=== PATIENT | female | born 1975 | race Caucasian/White ===

== ENCOUNTER → 2019-04-25 10:25 | Outpatient (CLI) | payer OTHER, SELFPAY ==
--- NOTE | 2019-04-25 | DI.RAD.S_ITS ---
PROCEDURE: XR ABDOMEN 1V INDICATIONS: calculus of kidney TECHNIQUE: One view of the abdomen acquired. COMPARISON: [facility], CR, XR ABDOMEN 1 VIEW, 04/13/2019, 6:46. FINDINGS: Surgical changes and devices: Status post placement of right ureteral stent. Bowel: Bowel gas pattern is normal. Soft tissues: Multiple right nephrolithiasis measuring up to 4 mm. Bones: No suspicious bony lesions. IMPRESSION: Status post placement of right ureteral stent Right nephrolithiasis measuring up to 4 mm, this appears decreased since the prior study dated 04/13/19. Dictated by: Osman Claros M.D. on 04/25/2019 at 13:29 Approved by: Osman Claros M.D. on 04/25/2019 at 13:31
== END ==
PROVIDERS: Visit Provider Urology
DX: N20.0 Calculus of kidney (principal); Z96.0 Presence of urogenital implants
CPT/HCPCS: 74018

== ENCOUNTER → 2020-08-23 07:30 | Outpatient (CLI) | payer OTHER, SELFPAY ==
--- NOTE | 2020-08-23 07:32 | DI.US.S_ITS ---
PROCEDURE: US PELVIC COMPLETE INDICATIONS: WORSENING MENORRHAGIA AND LEFT LOWER QUADRANT MASS TECHNIQUE: Real-time scanning was performed of the pelvic organs, with image documentation. Additional endovaginal scanning was necessary due to incomplete visualization of the adnexal and endometrial structures by transabdominal scanning. COMPARISON: Outside Film, CT, CT ABDOMEN PELVIS WITH CONTRAST, 11/08/2018, 9:38. [facility], CT, CT ABDOMEN PELVIS W CON, 08/23/2020, 7:41. FINDINGS: Uterus: Uterus is anteverted and normal in size at 9.9 x 6.6 x 5.2 cm. The endometrium measures five mm in combined thickness. The myometrium is mildly heterogeneous without discrete mass. There are several simple nabothian cysts in the cervix. Ovaries: The right ovary measures 4.7 x 2.8 x 2.9 cm for a volume of 19.8 cc. The left ovary measures 3.0 x 2.7 x 2.4 cm for a volume of 10.1 cc.. Both ovaries demonstrate a normal echotexture. Other: There is a subcutaneous cyst with a few thick septations in the left lower quadrant corresponding to the area of concern measuring 5.8 x 7.1 x 6.2 cm. There is trace vascularity along the periphery and within one of the septations. No pathologic free abdominal or pelvic fluid. IMPRESSION: 1. Slightly heterogeneous myometrial echotexture raising the possibility of adenomyosis. No focal mass or fibroid. 2. Subcutaneous left lower quadrant mildly complex cystic mass has increased size compared to the CT scan from 04/01/19. Consider MRI and/or tissue biopsy if not previously performed. Dictated by: Tiffanie Pitt M.D. on 08/23/2020 at 10:46 Approved by: Tiffanie Pitt M.D. on 08/23/2020 at 10:54
--- NOTE | 2020-08-23 07:32 | DI.MG.S_ITS ---
BILATERAL DIGITAL SCREENING MAMMOGRAM 3D/2D WITH CAD: 08/23/2020 CLINICAL: Routine Screening. Comparison is made to exam dated: 05/04/2017 mammogram and ultrasound - [facility]. There are scattered fibroglandular elements in both breasts. Current study was also evaluated with a Computer Aided Detection (CAD) system. There are post-traumatic changes with associated rim calcifications in the right breast 12:00 position posterior depth corresponding to large hematoma seen on 2017 mammogram and ultrasound. No significant masses, calcifications, or other findings are seen in either breast. IMPRESSION: BENIGN There is no mammographic evidence of malignancy. A 1 year screening mammogram is recommended. This exam was interpreted at Station ID: [id number]. NOTE: For mammograms, a report in lay terms will be sent to the patient. Approximately 15% of breast malignancies will not be visualized mammographically. In the management of a palpable breast mass, a negative mammogram must not discourage biopsy of a clinically suspicious lesion. Electronically Signed By: Hugo Moncada M.D. aty/:08/23/2020 08:53:25 letter sent: Normal Exam ACR BI-RADS Category 2: Benign Finding(s) 3342F
--- NOTE | 2020-08-23 07:57 | DI.CT.S_ITS ---
PROCEDURE: CT ABDOMEN PELVIS W CON INDICATIONS: Reeval LLQ mass, clinically enlarging with increased pain TECHNIQUE: After the administration of intravenous contrast, 5 mm thick sections acquired from the diaphragm to the symphysis. 5 mm coronal and sagittal reformats were acquired. For radiation dose reduction, the following was used: automated exposure control, adjustment of mA and/or kV according to patient size. COMPARISON: Outside Film, US, US ABDOMEN LIMITED, 11/01/2018, 9:28. [facility], , CT ABDOMEN/PELVIS WITH CONTRAST, 11/08/2018, 9:38. [facility], , CT ABDOMEN/PELVIS WITH CONTRAST, 04/01/2019, 11:05. FINDINGS: Image quality: Excellent. ABDOMEN: Lung bases: Lung bases are clear. Heart size is normal. Solid organs: Liver is normal in size and enhancement. Gallbladder is decompressed. Biliary system is non dilated. Pancreas enhances normally. Spleen is normal in size and enhancement. No adrenal nodules. Kidneys demonstrate normal size and enhancement, without hydronephrosis. Right kidney stones nonobstructing x2 measuring at 6 mm and 3 mm. Peritoneum and bowel: Stomach is decompressed limiting evaluation. Bowel loops demonstrate normal wall thickness and caliber. The appendix is not seen. No free fluid or air. Nodes and vessels: No retroperitoneal or mesenteric adenopathy by size criteria. Aorta and inferior vena cava are normal in size. Miscellaneous: No significant ventral hernias. Left lower quadrant abdominal wall soft tissue mass measures 6.3 x 5.9 x 5.5 cm, ( and 09/28), previously 4.2 x 3.9 x 3 cm on 04/01/2019. No internal calcifications. This appears bilobed with portion below the abdominal wall fascia. No surrounding fluid collection. PELVIS: Genitourinary: Bladder is unremarkable. Anteverted uterus. Miscellaneous: No inguinal hernias or adenopathy. Bones: No suspicious bony lesions. No vertebral body compression fractures. IMPRESSION: 1. Left lower quadrant abdominal wall mass measuring 6.3 cm is increased in size compared to March 2019 where it measured 4.2 cm. This could represent a desmoid tumor. Malignant etiology cannot be excluded. -Consider further evaluation with MRI with IV contrast. 2. No enlarged adenopathy. 3. Small nonobstructing right kidney stones. Dictated by: Allen Gamez M.D. on 08/23/2020 at 9:45 Approved by: Allen Gamez M.D. on 08/23/2020 at 10:05
[2020-08-23 08:13] LABS: Hematocrit 42.4 % (36-46); Hemoglobin 13.9 g/dL (12.0-16.0); Mean Corpuscular HGB Conc 32.8 % (30-36); Mean Corpuscular Hemoglobin 27.4 PG (26-34); Mean Corpuscular Volume 83.5 fL (80-100); Platelet Count 282 X10^3/uL (150-400); Red Blood Cell Count 5.08 X10^6/uL (4.0-5.2); Red Cell Distribution Width 13.6 % (11.6-14.8); White Blood Cell Count 7.1 X10^3/uL (4.5-11.0)
[2020-08-23 08:42] LABS: Alanine Aminotransferase 12 IU/L (<35); Albumin 3.8 g/dL (3.5-5.0); Albumin Globulin Ratio 1.3 (1.0-2.8); Alkaline Phosphatase 56 U/L (38-126); Aspartate Aminotransferase 17 IU/L (14-36); BUN Creatinine Ratio 32.3 (6-22); Bilirubin Total 0.3 mg/dL (0.2-1.3); Blood Urea Nitrogen 21 mg/dL (7-17); Calcium 8.9 mg/dL (8.4-10.2); Carbon Dioxide 29 mmol/L (22-32); Chloride 106 mmol/L (98-107); Cholesterol 186 mg/dL (140-199); Estimated Glomerular Filt Rate > 60.0 mL/min (>60); Globulin 2.9 g/dL (1.7-4.1); Glucose 100 mg/dL (70-100); HDL Cholesterol 66 mg/dL (40-60); HEMOLYSIS < 15 (0-50); LDL Cholesterol Calculated 112 mg/dL (<100); Potassium 4.3 mmol/L (3.4-5.1); Sodium 137 mmol/L (137-145); Total Protein 6.7 g/dL (6.3-8.2); Triglycerides 42 mg/dL (35-150)
[2020-08-23 09:16] LABS: TSH w/ Reflex to FT4 1.18 uIU/mL (0.47-4.68)
== END ==
PROVIDERS: PCP Registered Nurse Diabetes Educator; Referring Provider Registered Nurse Diabetes Educator; Visit Provider Registered Nurse Diabetes Educator
DX: R19.04 Left lower quadrant abdominal swelling, mass and lump (principal); R10.32 Left lower quadrant pain; N20.0 Calculus of kidney; Z12.31 Encounter for screening mammogram for malignant neoplasm of breast; N92.0 Excessive and frequent menstruation with regular cycle
CPT/HCPCS: 36415; 74177; 76830; 76856; 77063; 77067; 80053; 80061; 84443; 85027; Q9967

== ENCOUNTER → 2020-09-09 10:08 | Outpatient (CLI) | payer OTHER, SELFPAY ==
[2020-09-09 11:49] LABS: COVID19 -Nasal RAPID Negative (Negative)
== END ==
PROVIDERS: PCP Registered Nurse Diabetes Educator; Visit Provider Surgery
DX: Z20.822 Contact with and (suspected) exposure to COVID-19 (principal)
CPT/HCPCS: 87635; C9803

== ENCOUNTER 2020-09-10 09:37 | Day surgery (SDC) | payer OTHER, SELFPAY ==
[2020-09-10] VITALS (9 sets, daily range): BP systolic 96–124; BP diastolic 47–70; PULSE 67–81; RESP 8–20; TEMP 36.7–37; O2SAT 96–100; BMI 31.1
--- NOTE | 2020-09-10 | PATH_ITS ---
[facility] Accession Number: [id number] . 01 Material submitted: . abdomen - DESMOID TUMOR ABDOMINAL WALL . 01 Clinical history: . EXCISION OF DESMOID TUMOR . 02 Diagnosis: Abdominal Wall Lesion, Excision: Endometriotic cyst. No evidence of malignancy. MRV 09/16/2020 1307 Local . 02 Comment: As part of routine senior quality technician, Dr. Clements has reviewed the H/E slides from this case and agrees with the diagnosis of an endometriotic cyst, without evidence of malignancy. . 02 Electronically signed: . Cj Colon MD, PhD, Pathologist NPI- [id number] . 01 Gross description: . The specimen is received in formalin, labeled desmoid tumor abdominal wall and consists of two roberts-yellow fragments of adipose tissue and skeletal muscle measuring 11.0 x 10.0 x 7.0 cm in aggregate. The specimen is inked blue and sectioned to reveal a 4.0 x 4.0 x 4.0 cm cavity with a roberts-pink granular hemorrhagic inner lining abutting the blue ink. The surrounding tissue is roberts-white and fibrotic. Dietary Aide Teacher sections are submitted in cassettes A1-A6. ([id number]) /MRV 09/12/2020 1214 Local . 02 Microscopic: . Sections are of fibroadipose tissue and skeletal muscle. Within the center of the specimen, there is a hemorrhagic cystic structure with a predominantly denuded lining. In some areas, a simple columnar epithelium and focal cellular stroma are identified. The epithelial component is strongly and diffusely positive for PAX-8 immunoreactivity, and the stromal component is strongly and diffusely positive for CD10 immunoreactivity. Control stains show appropriate reactivity. The overall morphology and immunoprofile are consistent with an endometriotic cyst. There is no evidence of neoplasm. . * This test was developed and its performance characteristics determined by [facility]. It has not been cleared or approved by the U.S. Food and Drug Administration. The FDA has determined that such clearance or approval is not necessary. This test is used for clinical purposes. It should not be regarded as investigational or for research. . 02 Pathologist provided ICD-10: N80.6, N80.9 . 02 CPT . 806620, G99855, X37024 Performed at: 01 [facility] [address] [address], [place], [place] [id number] MD Moshe Cloud MD Phone: [phone] Performed at: 02 [facility] [address] [place] [id number] MD Yue Prabhakar MD Phone: [phone]
[2020-09-10] MEDS: ACETAMINOPHEN 325 MG TABLET 975 MG PO (10:01)
[2020-09-10] MEDS: SCOPOLAMINE 1 PATCH TOP (10:04)
[2020-09-10] MEDS: LACTATED RINGERS 1,000 ML 100 ML IV ×2 (10:16→12:34)
--- NOTE | 2020-09-10 10:49 | PM.PREOP ---
Pre-operative Note Interval Note History & Physical reviewed/Exam performed by Physician: Yes Changes to H&P: No
[2020-09-10] MEDS: CEFAZOLIN 2 GM/100 ML FROZ.PIGGY IV (11:17)
--- NOTE | 2020-09-10 11:30 | SUR.OPER ---
Supine on padded OR bed, head on pillow, arms secured on padded arm boards at <90 degrees abduction, legs uncrossed, safety belt at thigh, tape over blanket over lower legs.
[2020-09-10] MEDS: BUPIVACAINE 0.25% (PF) VIAL 30 ML INJ (11:38)
[2020-09-10] MEDS: MEPERIDINE 50 MG/ML INJ 12.5 MG IV (13:03)
[2020-09-10] MEDS: ONDANSETRON 4 MG/2 ML INJ IV (13:05)
--- NOTE | 2020-09-10 13:16 | P.OP_ITS ---
Operative Date/Time/Diagnoses Date of procedure: 09/10/20 Time of procedure: 13:16 Pre-op diagnosis: abdominal wall desmoid tumor Post-op diagnosis: same Procedure & Clinicians Procedure: exicision of desmoid tumor 8 cm Same procedure as scheduled: Yes Indications: 44 female history of a complicated cesarian section with multiple returns to the OR for control of abdominal wall bleeding who developed a mass of the abdominal wall imaging is consistent with a desmoid tumor. Surgeon: Noel Stevenson Anesthesia Type: General Operative Notes Findings: well vascularized 8 cm mass of the abdominal wall superficial to the left rectus. Fluid spontaneously drained from the mass cultures were taken. Specimen(s): other (desmoid tumor) Estimated Blood Loss (mL): 30 Procedure in detail: Patient is doing the operating room placed supine on table. Bilateral lower extremity compression devices were applied. She received 2 g of Ancef prior to skin incision. General anesthesia was induced and she was intubated with an LMA. She was prepped and draped in sterile fashion. The mass within the abdominal wall was palpable left lower quadrant. 0.25% bupivacaine was infiltrated into the skin. A incision was made over the area of concern the subcutaneous tissues were divided. The mass was encountered it was approximately 8 cm in maximal diameter. It was well vascularized and lay over the anterior sheath of the left rectus muscle. The mass was manipulated and was dissected off of the rectus muscle. The mass was very well vascularized. In manipulating in the mass there was a spontaneous drainage of some dark viscus fluid approximately 50 mL cultures were taken. The mass was then entirely dissected off of the left rectus muscle no residual remained and passed off the field as specimen labeled desmoid tumor. Wound was copiously irrigated hemostasis was achieved. A 19 [place] Aidan drain was then placed into the wound overlying the left rectus. Wound was then closed in layers using Vicryl suture the skin closed with interrupted nylon suture. A total of 30 mL of 0.25% bupivacaine was used for local anesthetic. Patient tolerated the procedure well she was extubated and transferred to the recovery room in stable condition. Complications: none Post-operative Condition: stable Disposition: same day surgery
--- NOTE | 2020-09-10 13:19 | SUR.PHASEI ---
Pt from OR with RN/anesth. ALert, able to turn self on right side. Small amt of shakes, bear hugger placed and demerol IV given. Shakes resolved. Zofran for nausea. Pt taking ice chips and juice.
[2020-09-10] MEDS: OXYCODONE IR 5 MG TABLET PO (13:26)
--- NOTE | 2020-09-10 14:03 | SUR.PHASEII ---
Discharge teaching done with patient. NICOLE emptying demonstrated. Pt verbalized understanding. Pt transfer to OPD
== END 2020-09-10 14:19 | disposition home or self-care (01) ==
PROVIDERS: PCP Registered Nurse Diabetes Educator; Referring Provider Surgery; Visit Provider Surgery
PROC: (CPT 22903; principal; 2020-09-10 10:45)
DX: N80.6 Endometriosis in cutaneous scar (principal); E66.9 Obesity, unspecified; Z68.32 Body mass index [BMI] 32.0-32.9, adult
CPT/HCPCS: 22903; 87070; 87075; 87205; J0690; J1100; J1885; J2175; J2250; J2405; J2704; J3010

== ENCOUNTER → 2022-05-01 09:20 | Outpatient (CLI) | payer OTHER, SELFPAY ==
[2022-05-01 10:48] LABS: Hematocrit 41.8 % (36-46); Hemoglobin 13.6 g/dL (12.0-16.0); Mean Corpuscular HGB Conc 32.5 % (30-36); Mean Corpuscular Hemoglobin 26.4 PG (26-34); Mean Corpuscular Volume 81.3 fL (80-100); Platelet Count 297 X10^3/uL (150-400); Red Blood Cell Count 5.14 X10^6/uL (4.0-5.2); Red Cell Distribution Width 13.6 % (11.6-14.8); White Blood Cell Count 7.1 X10^3/uL (4.5-11.0)
[2022-05-01 11:16] LABS: Alanine Aminotransferase 19 IU/L (<35); Albumin Globulin Ratio 1.1 (1.0-2.8); Alkaline Phosphatase 68 U/L (38-126); Aspartate Aminotransferase 20 IU/L (14-36); BUN Creatinine Ratio 28.8 (6-22); Bilirubin Total 0.5 mg/dL (0.2-1.3); Blood Urea Nitrogen 17 mg/dL (7-17); Calcium 8.7 mg/dL (8.4-10.2); Carbon Dioxide 26 mmol/L (22-32); Chloride 105 mmol/L (98-107); Cholesterol 188 mg/dL (140-199); Estimated Glomerular Filt Rate > 60 mL/min (>60); Globulin 3.6 g/dL (1.7-4.1); Glucose 92 mg/dL (70-100); HDL Cholesterol 56 mg/dL (40-60); HEMOLYSIS < 15 (0-50); LDL Cholesterol Calculated 125 mg/dL (<100); Potassium 4.4 mmol/L (3.4-5.1); Sodium 139 mmol/L (137-145); Total Protein 7.6 g/dL (6.3-8.2); Triglycerides 37 mg/dL (35-150)
[2022-05-01 11:48] LABS: TSH w/ Reflex to FT4 1.01 uIU/mL (0.47-4.68)
== END ==
PROVIDERS: PCP Registered Nurse Diabetes Educator; Referring Provider Registered Nurse Diabetes Educator; Visit Provider Registered Nurse Diabetes Educator
DX: D48.1 Neoplasm of uncertain behavior of connective and other soft tissue (principal); E66.9 Obesity, unspecified; N20.0 Calculus of kidney; N80.9 Endometriosis, unspecified; Z13.9 Encounter for screening, unspecified
CPT/HCPCS: 36415; 80053; 80061; 84443; 85027

== ENCOUNTER → 2022-05-27 16:21 | Outpatient (CLI) | payer OTHER, SELFPAY ==
--- NOTE | 2022-05-27 16:22 | DI.MRI.S_ITS ---
PROCEDURE: MR HEAD/BRAIN WO CON INDICATIONS: eval increasing frequency and severity headaches TECHNIQUE: Noncontrast axial T1 spin echo, axial T2 fast spin echo, sagittal and axial FLAIR, coronal T2 fast spin echo, axial gradient echo, axial diffusion and ADC through the brain. COMPARISON: None. FINDINGS: Image quality: Excellent. CSF Spaces: Basal cisterns are patent. No extra-axial fluid collections. Ventricles are normal in size and shape. Brain: No intracranial masses or hemorrhage. Cantu/white matter interface is normal. Brainstem appears normal. Diffusion-weighted images demonstrate no acute ischemic insult. No chronic ischemic insults. Normal intravascular flow voids are present. Skull and face: Calvarium has normal marrow signal. Orbits appear normal. Sinuses: Sinuses and mastoids are clear. IMPRESSION: 1. No acute intracranial abnormality. No explanation for headache. 2. No recent infarct. Dictated by: Nomi Sr M.D. on 05/27/2022 at 16:26 Approved by: Nomi Sr M.D. on 05/27/2022 at 16:26
== END ==
PROVIDERS: PCP Registered Nurse Diabetes Educator; Referring Provider Registered Nurse Diabetes Educator; Visit Provider Registered Nurse Diabetes Educator
DX: R51.9 Headache, unspecified (principal)
CPT/HCPCS: 70551

== ENCOUNTER 2022-12-17 12:35 | Day surgery (SDC) | payer OTHER, SELFPAY ==
[2022-12-03 12:24] VITALS: BMI 40.3
[2022-12-17] VITALS (9 sets, daily range): BP systolic 112–126; BP diastolic 56–87; PULSE 77–92; RESP 12–18; TEMP 35.9–36.7; O2SAT 93–98; BMI 38.0
--- NOTE | 2022-12-17 | PATH_ITS ---
[facility] Accession Number: [id number] No. of containers..01 Tissue . 01 Material submitted: . uterus - UTERUS AND TUBES, BILATERAL . 01 Diagnosis: Uterus and Tubes, Bilateral (Weight 195 grams): Disordered proliferative endometrium; negative for significant atypia. Myometrium with involvement by adenomyosis. Uterine serosa with no significant histomorphologic abnormality. Intact fallopian tube with no significant histomorphologic abnormality. Fragmented fallopian tube with no significant histomorphologic abnormality. [facility] 12/23/2022 1547 Local . 01 Electronically signed: . Grace Hough MD, Pathologist NPI- [id number] . 01 Gross description: . The specimen is received in formalin labeled with the patient's name, , and uterus and tubes consists of a fragmented uterus (195 grams, and aggregating to 14.4 x 12.2 x 5.3 cm) and two fimbriated fallopian tubes (intact, measures 3.3 x 0.6 cm and the fragmented tube measures 5.2 x 0.7 cm) with no cervix or additional adnexa. The serosa is roberts and wrinkled with no evidence of adhesion or hemorrhage identified. The endometrium is roberts to brown and lush, averaging 0.1 cm thick. The myometrium is roberts and trabecular with no well-circumscribed nodules grossly identified, and several small cystic areas measuring up to 0.3 cm in greatest dimension. . The intact fallopian tube has roberts smooth serosa with no cystic structures identified, and sectioning reveals an unremarkable stellate lumen. The fragmented fallopian tube has roberts smooth serosa with no cystic structures identified, and sectioning reveals an unremarkable stellate lumen. . Pit Furnace Operator sections are submitted as follows: A1: Endometrium. A2: Endometrium and cystic area. A3: Serosa. A4: Intact fallopian tube to include one-half of bisected fimbriae and cross sections. A5: Fragmented fallopian tube to include one-half of the bisected fimbriae and cross sections. ([id number]) /MRV 12/18/2022 1443 Local . 01 Pathologist provided ICD-10: N80.03, N92.0 . 01 CPT . 104207 Specimen Comment: A courtesy copy of this report has been sent to [phone] Performed at: 01 [facility] [address] [place] [address], [place], [place] [id number] MD Moshe Cloud MD Phone: [phone]
[2022-12-17] MEDS: SCOPOLAMINE 1 PATCH TOP (13:05)
[2022-12-17] MEDS: LACTATED RINGERS 1,000 ML 42 ML IV ×2 (13:09→14:35)
--- NOTE | 2022-12-17 13:22 | PM.PREOP ---
Pre-operative Note COVID-19 COVID-19 status: Not tested Criteria for continued procedure: Non-surgical alternatives not available or appropriate per current SOC Interval Note History & Physical reviewed/Exam performed by Physician: Yes Changes to H&P: No
[2022-12-17] MEDS: CEFAZOLIN VIAL 3 GM in SODIUM CHLORIDE 0.9% 100 ML IV (13:45)
[2022-12-17] MEDS: ACETAMINOPHEN IV 1,000 MG/100 ML VIAL 400 MG IV (13:55)
--- NOTE | 2022-12-17 14:23 | SUR.OPER ---
Lithotomy on padded OR bed. Granite Quarry Pad Positioner under torso. Head on pillow, arms padded and tucked at sides. Legs secured in padded yellow fins stirrups. Bed extenders placed on both sides.
[2022-12-17] MEDS: BUPIVACAINE 0.5% (PF) 30 ML, EPINEPHrine 0.15 MG INJ (14:38)
[2022-12-17] MEDS: ROPIVACAINE 0.2% PF 2 MG/ML 20ML AMP 20 ML INJ (15:07)
--- NOTE | 2022-12-17 16:08 | P.OP_ITS ---
Operative Date/Time/Diagnoses Date of procedure: 12/17/22 Time of procedure: 14:00 Pre-op diagnosis: Menorrhagia Adenomyosis (Suspected diagnosis) Post-op diagnosis: same Procedure & Clinicians Procedure: Procedures Operation Date: 12/17/22 13:30 Actual Procedure Side Surgeon p Laparoscopic Supracervical Hysterectomy w/ bilateral salpingectomy Jared Cleveland MD Indications: Lidya is a 46-year-old , LMP due in about 3 or 4 days, who presents with progressively severe menorrhagia for the last 4 years.? Patient experienced menarche at age 15 her cycles have never been regular.? She was diagnosed with polycystic ovarian syndrome in her teens and initiated on oral contraceptives which did not necessarily improve her flow or regularity.? Use of oral contraceptives have also been complicated by her history of migraines with and without aura.? At the time of her 3rd delivery, her 1st by , in 2013 she underwent tubal ligation at the time of .? Since then her menses have been regular but her menstrual flow is steadily lengthened to the point now that it typically lasts between 1 in 2 weeks with the passage of large clots and severe cramping.? She denies intermenstrual bleeding or postcoital bleeding.? Her last Pap was about 2 months ago and was normal.? She is never had endometrial sampling.? Family history is notable for her father's sister and mother who have ovarian and/or breast cancer.? Most recent pelvic imaging was in August 2020 which showed: PROCEDURE:? US PELVIC COMPLETE ? INDICATIONS:? WORSENING MENORRHAGIA AND LEFT LOWER QUADRANT MASS ? TECHNIQUE:? Real-time scanning was performed of the pelvic organs, with image documentation.? Additional endovaginal scanning was necessary due to incomplete visualization of the adnexal and endometrial structures by transabdominal scanning.? ? COMPARISON:? Outside Film, CT, CT ABDOMEN PELVIS WITH CONTRAST, 11/08/2018, 9:38.? [facility], CT, CT ABDOMEN PELVIS W CON, 08/23/2020, 7:41. ? FINDINGS:? ?? Uterus:? Uterus is anteverted and normal in size at 9.9 x 6.6 x 5.2 cm.? The endometrium measures five mm in combined thickness.? The myometrium is mildly heterogeneous without discrete mass.? There are several simple nabothian cysts in the cervix. ? Ovaries:? The right ovary measures 4.7 x 2.8 x 2.9 cm for a volume of 19.8 cc.? The left ovary measures 3.0 x 2.7 x 2.4 cm for a volume of 10.1 cc..? Both ovaries demonstrate a normal echotexture.? ? Other: ? There is a subcutaneous cyst with a few thick septations in the left lower quadrant corresponding to the area of concern measuring 5.8 x 7.1 x 6.2 cm.? There is trace vascularity along the periphery and within one of the septations.? No pathologic free abdominal or pelvic fluid. ? IMPRESSION:? 1. Slightly heterogeneous myometrial echotexture raising the possibility of adenomyosis.? No focal mass or fibroid. 2. Subcutaneous left lower quadrant mildly complex cystic mass has increased size compared to the CT scan from 04/01/19.? Consider MRI and/or tissue biopsy if not previously performed. Endometrial biopsy performed previously and negative for hyperplasia, atypia, or neoplasia.? Based on the patient's symptoms and prior imaging from 2020, adenomyosis would seem to be the most likely culprit insofar as her worsening menorrhagia.? We discussed different options available for further evaluation/treatment of the menorrhagia and patient is adamant that she wishes to pursue definitive therapy form of hysterectomy.? Given her history of normal Paps throughout her reproductive life and a prior Pfannenstiel, supracervical hysterectomy with bilateral salpingectomy would be the optimal surgical approach in her instance.? She presents today for her scheduled procedure. Surgeon: Jared Cleveland Truck Loader: Jayleen Duque Anesthesia Type: General Operative Notes Findings: The uterus is diffusely enlarged to approximately 8 weeks in size. There were adhesions involving the anterior cul-de-sac from prior sections and involving the right round ligament. Fallopian tubes demonstrate change consistent with prior tubal ligation. Posterior cul-de-sac is without adhesions or evidence of endometriosis. Both ovaries appear to be normal. The remainder of the abdomen was normal to laparoscopic visualization. Closure Type: primary Specimen(s): left tube, right tube and uterus Applied: catheter Estimated blood loss (mL): 75 Blood products transfused: none Procedure in detail: With the patient under satisfactory general anesthesia in the modified dorsal lithotomy position, the vagina, perineum, and abdomen were prepped and draped in the usual manner for laparoscopic supracervical hysterectomy. A pre-surgical safety time-out was then taken in accordance with [facility] Main OR protocols. A bivalve speculum was inserted vagina, the cervix grasped with a single-tooth tenaculum and dilated with Hegar dilators so as to be able to place a Zumi manipulator within the endometrial cavity. The inferior aspect of the umbilicus was then infiltrated 0.5% Marcaine with epinephrine and a 1 cm transverse incision was made through which a Veress needle was used insufflate the abdominal cavity. Once insufflated a 5 mm trocar and sleeve were then placed through the incision and the presence of the sleeve in the abdomen was confirmed by laparoscopic inspection. Second and 3rd 5 mm ports were then placed in the left and right mid quadrants using a similar technique. Pelvis and abdomen were then inspected using a 3 puncture technique with the findings as noted above. The left fallopian tube was grasped at its distal most portion and infundibulopelvic ligament on the left was then and divided with the PowerSeal bipolar device. The dissection was then carried mesosalpinx to level of the cornua and then the round ligament on the left was coagulated and divided with the PowerSeal. The dissection was then taken down to the level of the endocervix where the ascending uterine vessels were coagulated and divided. Bladder flap was initiated from the left and dissection was carried across the midline to the right side. Attention was then turned to the right side where the distal right tube was grasped with a grasping forceps and the infundibulopelvic ligament on the right was coagulated and divided with the PowerSeal. The dissection was then carried across the mesosalpinx to the cornua, downward across the round ligament to the level of the endocervical canal where vessels were coagulated and divided and the bladder flap completed. Bladder was advanced, the Zumi manipulator removed, and a Eusebia loop was used to amputate the corpus. Following amputation there was no bleeding encountered. The cervical stump was then coagulated with monopolar current and the endocervical canal was coagulated in a similar manner. A 4 cm transverse suprapubic incision was then made through which a 12 mm trocar and sleeve was introduced into the abdominal cavity. An Endo-Catch was used to capture the uterine corpus and brought up to the suprapubic incision. S retractors were used to expose the fascia which was incised bilaterally so as to expand the fascial incision and once the incision had been expanded, an Real retractor was placed in the retrieval bag. Sharp morcellation of the uterine corpus was then carried out and the containment bag and submitted as an aggregate specimen. The Real retractor was then removed and closure of the fascial defect was accomplished with 0 Vicryl in a running stitch. The abdomen was then reinsufflated the pelvis thoroughly inspected. There was no points of bleeding identified and the ureters were seen to be peristalsing freely on both sides. 20 cc of ropivacaine was then placed in the pelvis and the pneumoperitoneum was vented. The laparoscopic sleeves were then removed after venting of the pneumoperitoneum and all skin incisions were closed with 4-0 Monocryl using inverted interrupted stitches. Skin glue was then applied followed by placement of appropriate dressings on all incisions. Patient was then awakened from anesthesia and transferred to the PACU for a period of observation and recovery after having tolerated the procedure well. Complications: none Post-operative Condition: stable Disposition: PACU Plan for aftercare: Routine postoperative care.
[2022-12-17] MEDS: LACTATED RINGERS 1,000 ML 100 ML IV (16:36)
[2022-12-17] MEDS: KETOROLAC 30 MG/ML VIAL IV ×2 (16:36→22:47)
--- NOTE | 2022-12-17 16:55 | PC.NURSE ---
Pt arrived on bed from PACU at 1630, A&Ox4, VSS on RA. c/o minor abdominal pain, worse with movement. 4 lap sites to abdomen, dressing c/d/i. CMS intact bilaterally throughout. Schaeffer in place, draining well - clear yellow urine. Pt oriented to room and call light. SCDs on, bed in low position, call light within reach.
[2022-12-17] MEDS: ACETAMINOPHEN 325 MG TABLET 650 MG PO ×2 (18:30→23:00)
[2022-12-17] MEDS: CALCIUM CARBONATE 500 MG TAB 1000 MG PO (21:02)
[2022-12-18 01:16] VITALS: BP 103/61; PULSE 80; RESP 17; TEMP 36.7; O2SAT 97
[2022-12-18 04:43] LABS: Add Manual Diff / Slide Review NO; Basophils Absolute Auto 0 /uL (0-100); Basophils Percent Auto 0.3 % (0-2); Eosinophils Absolute Auto 0 /uL (0-450); Hematocrit 36.6 % (36-46); Hemoglobin 11.9 g/dL (12.0-16.0); Lymphocytes Absolute Auto 1300 /uL (1100-4500); Lymphocytes Percent Auto 7.1 % (25-40); Mean Corpuscular HGB Conc 32.5 % (30-36); Mean Corpuscular Hemoglobin 25.4 PG (26-34); Monocytes Absolute Auto 700 /uL (0-900); Monocytes Percent Auto 4.1 % (3-14); Neutrophils Absolute Auto 15700 /uL (1500-7000); Neutrophils Percent Auto 88.5 % (50-75); Platelet Count 296 X10^3/uL (150-400); Red Cell Distribution Width 14.6 % (11.6-14.8); White Blood Cell Count 17.7 X10^3/uL (4.5-11.0)
--- NOTE | 2022-12-18 07:53 | PM.DS.1 ---
History of Present Illness History of Present Illness Date Patient Seen: 12/18/22 Time Patient Seen: 07:53 Chief complaint: [facility] w/leanna Salpingectomy *OPB* Narrative: Lidya is a 46-year-old , LMP due in about 3 or 4 days, who presents with progressively severe menorrhagia for the last 4 years.? Patient experienced menarche at age 15 her cycles have never been regular.? She was diagnosed with polycystic ovarian syndrome in her teens and initiated on oral contraceptives which did not necessarily improve her flow or regularity.? Use of oral contraceptives have also been complicated by her history of migraines with and without aura.? At the time of her 3rd delivery, her 1st by , in 2013 she underwent tubal ligation at the time of .? Since then her menses have been regular but her menstrual flow is steadily lengthened to the point now that it typically lasts between 1 in 2 weeks with the passage of large clots and severe cramping.? She denies intermenstrual bleeding or postcoital bleeding.? Her last Pap was about 2 months ago and was normal.? She is never had endometrial sampling.? Family history is notable for her father's sister and mother who have ovarian and/or breast cancer.? Most recent pelvic imaging was in August 2020 which showed: PROCEDURE:? US PELVIC COMPLETE ? INDICATIONS:? WORSENING MENORRHAGIA AND LEFT LOWER QUADRANT MASS ? TECHNIQUE:? Real-time scanning was performed of the pelvic organs, with image documentation.? Additional endovaginal scanning was necessary due to incomplete visualization of the adnexal and endometrial structures by transabdominal scanning.? ? COMPARISON:? Outside Film, CT, CT ABDOMEN PELVIS WITH CONTRAST, 11/08/2018, 9:38.? [facility], CT, CT ABDOMEN PELVIS W CON, 08/23/2020, 7:41. ? FINDINGS:? ?? Uterus:? Uterus is anteverted and normal in size at 9.9 x 6.6 x 5.2 cm.? The endometrium measures five mm in combined thickness.? The myometrium is mildly heterogeneous without discrete mass.? There are several simple nabothian cysts in the cervix. ? Ovaries:? The right ovary measures 4.7 x 2.8 x 2.9 cm for a volume of 19.8 cc.? The left ovary measures 3.0 x 2.7 x 2.4 cm for a volume of 10.1 cc..? Both ovaries demonstrate a normal echotexture.? ? Other: ? There is a subcutaneous cyst with a few thick septations in the left lower quadrant corresponding to the area of concern measuring 5.8 x 7.1 x 6.2 cm.? There is trace vascularity along the periphery and within one of the septations.? No pathologic free abdominal or pelvic fluid. ? IMPRESSION:? 1. Slightly heterogeneous myometrial echotexture raising the possibility of adenomyosis.? No focal mass or fibroid. 2. Subcutaneous left lower quadrant mildly complex cystic mass has increased size compared to the CT scan from 04/01/19.? Consider MRI and/or tissue biopsy if not previously performed. Endometrial biopsy performed previously and negative for hyperplasia, atypia, or neoplasia.? Based on the patient's symptoms and prior imaging from 2020, adenomyosis would seem to be the most likely culprit insofar as her worsening menorrhagia.? We discussed different options available for further evaluation/treatment of the menorrhagia and patient is adamant that she wishes to pursue definitive therapy form of hysterectomy.? Given her history of normal Paps throughout her reproductive life and a prior Pfannenstiel, supracervical hysterectomy with bilateral salpingectomy would be the optimal surgical approach in her instance.? She presents today for her scheduled procedure. Discharge Providers Provider Date of admission: 12/17/2022 Discharge Date: 12/18/22 Primary care physician: PUJA Bautista Discharge provider: Jared Cleveland MD Summary Hospital Course Discharge Diagnosis: Menorrhagia Adenomyosis (Suspected diagnosis) Status post laparoscopic supracervical hysterectomy with bilateral salpingectomy Hospital Course: Lidya was admitted on the morning of 12/17/2022 and that afternoon underwent an uneventful laparoscopic supracervical hysterectomy with bilateral salpingectomy. Details of the procedure well summarized on my operative note of that date. Following surgery the patient has done exceptionally well with prompt return of bowel and bladder function, she is ambulating independently, tolerating a regular diet, and her pain is well controlled with oral pain medications. She will be discharged at this time to home in an afebrile normotensive condition after counseling regarding precautionary symptoms, limitations of activity, medications, and plans for follow-up which will be in 2 weeks. She will resume all preadmission medications and was prescribed oxycodone 5 mg p.o. q.6 hours as needed pain, dispense 12 with no refills, and Cipro 500 mg p.o. b.i.d. x5 days for UTI prophylaxis following catheterization. Status at Discharge Cognitive/behavioral status at discharge: oriented Functional status at discharge: independent ambulation Overall status at discharge: patient is progressing back to baseline Time Spent with Patient Time spent: Less than 30 minutes Exam Vital Signs (past 8 hours): - 12/18/22 01:16 Temperature 98.1 F Pulse Rate 80 Respiratory Rate 17 Blood Pressure 103/61 Pulse Oximetry 97 Oxygen Flow Rate 0 Oxygen Delivery Method Room Air Oxygen Flow Rate 0 Const General: cooperative and comfortable Nutritional Appearance: average body habitus Orientation: alert and oriented x3 HENMT Head: normal to inspection, atraumatic and abrasion Ears: hearing grossly normal bilaterally Face and sinus: face symmetric Eyes General: appearance normal, both eyes and all related structures Conjunctivae: conjunctivae normal Sclera: sclerae normal EOM: EOM intact bilaterally Neck Neck: normal visual inspection Resp Effort & Inspection: normal respiratory effort and able to speak in complete sentences Auscultation: clear to auscultation bilaterally Cardio Rate: regular rate Rhythm: regular rhythm Heart Sounds: S1 normal, S2 normal and no murmurs GI Inspection: normal to inspection and incision (Surgical dressings clean and dry) Palpation: soft, no hepatosplenomegaly and tender (Mild, diffuse postsurgical tenderness) External Female Exam: other (No significant bleeding noted) Extrem General: no calf tenderness Psych Appearance: grossly normal Mental Status: mental status grossly normal Speech and Movement: speech and movement normal Mood: congruent mood Affect: normal affect Attitude: cooperative Thought Process: normal Thought Content: normal Judgment: judgment good Objective Labs 12/18/22 04:10 Labs: Laboratory Results - last 24 hr 12/18/22 04:10 WBC 17.7 H RBC 4.70 Hgb 11.9 L Hct 36.6 MCV 78.0 L MCH 25.4 L MCHC 32.5 RDW 14.6 Plt Count 296 Neut % (Auto) 88.5 H Lymph % (Auto) 7.1 L [place] % (Auto) 4.1 Eos % (Auto) 0.0 L Baso % (Auto) 0.3 Neut # (Auto) 01105 H Lymph # (Auto) 1300 [place] # (Auto) 700 Eos # (Auto) 0 Baso # (Auto) 0 PFSH Medical History (Updated 11/24/22 @ 12:24 by Jared Cleveland MD) Dyslipidemia Kidney stones (~2010) Obesity Recurrent nephrolithiasis Surgical History (Updated 12/03/22 @ 12:27 by Jeanine Wilkinson RN) Anesthesia History of appendectomy History of section History of tonsillectomy Hx of abdominal surgery (09/10/20) Family History Grandfather Hypertension Stroke Grandmother Cancer Father Hypertension Social History marital status: household members: spouse and children occupational status: employed Smoking Status: Never smoker alcohol intake: never substance use type: does not use Discharge Assessment & Plan Assessment and Plan Assessment: Menorrhagia Adenomyosis (presumptive diagnosis ) Status post laparoscopic supracervical hysterectomy with bilateral salpingectomy Plan of Treatment: Routine postoperative care with follow-up appointment scheduled for 2 weeks postop Discharge Plan Discharge Plan Patient Disposition: Home Provider Discharge Comment: Please review the written instructions you received when you were discharged from the hospital. Your follow-up visit will be scheduled for 2 weeks after your surgery and I look forward to seeing you then. If however in the meanwhile you have any questions, concerns, or problems, please contact me either through the office phone at [phone], or via the patient. Nursing Discharge Comment: Scopalamine patch behind your ear can stay in place for 3 days from placement and then be removed. If you notice you feel dry such as in your mouth, have some dizziness or other signs of discomfort you can remove the patch sooner. You may start taking Ibuprofen at 2:30 today. Discharge orders & Medications Discharge Orders: Discharge (Order); Ordered 12/18/22 Ordered By: Jared Cleveladn Prescriptions: New oxycodone 5 mg Tablet 5 mg PO Q6H PRN (Reason: Pain, Moderate (4-6)) Qty: 12 0RF ciprofloxacin HCl [Cipro] 500 mg tablet 500 mg PO BID 5 Days Qty: 10 0RF Continued sumatriptan succinate [Imitrex] 50 mg tablet See Rx Instructions PO .COMPLEX Qty: 10 3RF Rx Instructions: take 1 tab at onset of headache; if no relief may repeat 1 tab after at least 2 hrs; max = 4 tabs/24 hr PO Discontinued tranexamic acid 650 mg tablet 1,300 mg PO TID Qty: 30 3RF Rx Instructions: Start medication at the beginning of each period Follow up/Referrals: Dano Amaral ARNP [Primary Care Provider] - Jared Cleveland MD [Physician] - Diet/Activity/Treatments Diet: Diet as Tolerated Activity: As tolerated Other treatments: [id number] Tylenol and/or ibuprofen may be used for additional pain relief. [id number] stool softeners and/or MiraLax may be used as needed for constipation. Skin/Wound/Dressing Care Report to your healthcare provider any signs of infection, such as:: chills, fever, increased pain, unusual drainage and unusual redness Dressing: You may remove the upper 3 dressings on the morning of 12/19/2022. The lower dressing should remain in place for 4-5 days. Visit Report/Discharge Packet Instructions: DI for Hysterectomy, DI for Laparoscopy, DI for Constipation, DI for Prescription Opioid Use, DI for Taking Pain Medication Stand Alone Forms: Patient Portal/API, Surgery Discharge Print Language: Hungarian Discharge Data Primary Care Provider: Dano Amaral Attending Provider: Jared Cleveland
[2022-12-18 08:06] VITALS: BP 117/47; PULSE 75; RESP 16; TEMP 37.1; O2SAT 97
[2022-12-18] MEDS: ACETAMINOPHEN 325 MG TABLET 650 MG PO (08:30)
[2022-12-18] MEDS: KETOROLAC 30 MG/ML VIAL IV (08:30)
--- NOTE | 2022-12-18 09:06 | CM.DANOTE ---
DCP Assessment: Patient is a 47yo Female here following a scheduled [facility] w/leanna Salpingectomy on 12/[address] Cleveland. PCP: Dano Amaral Payer: Dar[employer] and self pay INTERNATIONAL STUDENT COUNSELOR reviewed chart. From nursing staff, likely home with no needs. INTERNATIONAL STUDENT COUNSELOR entered room and introduced self and role. Patient was sitting up, A/Ox4, dressed and ready to go home, and chatty/pleasant to talk to. Patient lives at home with spouse/DPKIMBERLY Andre ([phone]) and their three children. Patient is independent and drives at baseline. Spouse will be here soon to drive her home to [place]. Plan: d/c home today with spouse in PO. Likely no needs from CM team. CM team will continue to follow as necessary. KAHLIL Obrien Discharge Planning/Care Management CM Discharge Assessment Start: 12/18/22 09:05 Freq: Status: Active Protocol: Document 12/18/22 09:05 (Rec: 12/18/22 09:06 [id number]) Discharge Planning Assessment Assigned Stunner Animal KAHLIL Guardado` DPOA/Assigned Designee Name Thai Haji (spouse) Contact Information [phone] Advance Directives? No History Provided By Patient,Medical Record Prior Living Arrangements House Household Members spouse,children Type of transporation used prior to Drives own vehicle admit Independent with ADL's Yes Is patient alert and oriented? Yes Discharge Plan Home Transportation Arrangement spouse in POV Whiteboard Updated in Patient Room with Yes name and ext. # of Stunner Animal Review Status In Process Next Review Type Continued Stay Review Pre-Anesthesia Assessment Start: 12/03/22 12:24 Freq: Status: Active Protocol: Document 12/03/22 12:24 [facility] (Rec: 12/03/22 12:28 [facility] [id number]) Pre-Anesthesia Assessment Patient Information Reviewed Via Chart Review Primary Care Provider Dano Amaral Seen Specialist in Last 12 Months Yes Specialist Seen [employer] Primary Language Icelandic Preferred Language Icelandic Business Employment Specialist Required No Height 172.72 cm Weight 120.202 kg Body Mass Index (BMI) 40.3 Barriers to Learning None Hx Anesthesia Reactions No Hx Family Anesthesia Reaction No Hx Malignant Hyperthermia No Hx Blood Transfusion Reaction No Anesthesia Review Requested No Club Licensee No alcohol intake never Smoking Status Never smoker Substance Use Type does not use History of Falling (Recent or History of No ) Patient is completely paralyzed or No completely immobile Mental Status Oriented to own ability Is patient on oxygen? No Hx Sleep Apnea No CPAP/BIPAP use not prescribed Currently Taking a Beta Stevenson No Anti-Coagulant Therapy No Has a Insurance Collector No Cardiac Testing No Hx Pacemaker/ICD No Pacemaker Rep Required? No Urinary Catheter Present No Hx Urinary Self Catheterization No Diabetes No Patient No Lactating No Presence of External or Internal Medical No Devices Marital Status Lives With spouse,children Patient Discharge Plan Description Return Home Advance Directives? No
--- NOTE | 2022-12-18 12:02 | PC.NURSE ---
Discharge: Pt feels ready to d/c to home. D/c instructions reviewed. Dressings to abd are c/d/i. Tolerates diet w/out problems. Vds w/out problems. Tylenol and toradol have been effective for pain control. Scope patch teaching given. Pt d/c to home via auto w/spouse and her children.
== END 2022-12-18 09:52 | disposition home or self-care (01) ==
LOC: OR 12:36 → AC 12:37
PROVIDERS: PCP Registered Nurse Diabetes Educator; Referring Provider Obstetrics & Gynecology; Visit Provider Obstetrics & Gynecology
PROC: 0UT94ZL Resection of Uterus, Supracervical, Percutaneous Endoscopic Approach (ICD-10-PCS; CPT 58542; principal; 2022-12-17 13:30)
DX: N92.0 Excessive and frequent menstruation with regular cycle (principal); N80.03 Adenomyosis of the uterus
CPT/HCPCS: 58542; 36415; 85025; J0131; J0171; J0330; J0690; J1100; J1170; J1885; J2405; J2704; J2795; J3010; J3490

== ENCOUNTER → 2024-09-19 11:06 | Outpatient (CLI) | payer OTHER, SELFPAY ==
[2022-12-17 12:38] VITALS: BMI 38.0
--- NOTE | 2024-09-19 11:07 | DI.CT.S_ITS ---
PROCEDURE: CT ABDOMEN PELVIS W CON INDICATIONS: LLQ pain/pressure, poss recurrence of desmoid TECHNIQUE: After the administration of intravenous contrast, axial sections acquired from the lung bases to the pubic symphysis. Coronal and sagittal reformats were performed. For radiation dose reduction, the following was used: automated exposure control, adjustment of mA and/or kV according to patient size. COMPARISON: [facility], CT, CT ABDOMEN PELVIS W CON, 08/23/2020, 7:41. FINDINGS: Image quality: Diagnostic. Lower Chest: No significant findings. ABDOMEN: Liver: No solid mass. Gallbladder: No radiopaque gallstones or wall thickening. Biliary ducts: No biliary dilation. Pancreas: No ductal dilation. Spleen: Size is within normal limits. Adrenal Glands: No adrenal nodules. Kidneys and Ureters: Non-obstructing right-sided renal stones measuring up to 5 mm. No hydronephrosis. No solid mass. No complex renal cystic lesion which requires follow up. Stomach and Bowel: Normal colonic caliber, without significant wall thickening. Peritoneum: No abnormal intraperitoneal fluid. No free air. Ventral Wall: No significant ventral hernia. Scarring in the left lower anterior abdominal wall or prior lesion was located. No findings concerning for recurrent disease. Abdominal Nodes: No retroperitoneal or mesenteric adenopathy by size criteria. Paraesophageal lymph node measuring 9 mm in short axis is new compared to prior (2/16). Vessels: Aorta and inferior vena cava are normal in size. PELVIS: Pelvic Organs: Status post hysterectomy. Cystic structure within the anterior vaginal cuff measuring approximately 1.9 cm of uncertain etiology. Left ovarian simple appearing cyst measuring 2.7 cm. Bladder: No bladder wall thickening, accounting for underdistention. Pelvic Nodes: No enlarged lymph nodes. Miscellaneous: No inguinal hernias are seen. Bones: No aggressive osseous abnormality. IMPRESSION: 1. Postsurgical changes from resection of left lower quadrant anterior abdominal wall mass without findings concerning for recurrent disease. 2. Prominent lymph node near the GE junction measuring 9 mm in short axis is new compared to prior. No other enlarged lymph nodes are seen. This is of uncertain etiology. Recommend follow-up imaging. 3. Status post hysterectomy. Cystic structure within the anterior vaginal cuff measuring 1.9 cm. Left ovarian simple appearing cyst measuring 2.7 cm. Consider pelvic ultrasound for further evaluation of these findings. 4. Nonobstructing right renal stones. Dictated by: Raimundo Kwok M.D. on 09/19/2024 at 14:57 Approved by: Raimundo Kwok M.D. on 09/19/2024 at 15:07
== END ==
PROVIDERS: PCP Registered Nurse Diabetes Educator; Referring Provider Registered Nurse Diabetes Educator; Visit Provider Registered Nurse Diabetes Educator
DX: N20.0 Calculus of kidney (principal); N89.8 Other specified noninflammatory disorders of vagina; N83.202 Unspecified ovarian cyst, left side; R10.32 Left lower quadrant pain; G89.29 Other chronic pain; Z98.890 Other specified postprocedural states; Z90.710 Acquired absence of both cervix and uterus
CPT/HCPCS: 74177; Q9967

== ENCOUNTER → 2024-10-06 09:18 | Outpatient (CLI) | payer OTHER, SELFPAY ==
[2022-12-17 12:38] VITALS: BMI 38.0
--- NOTE | 2024-10-06 09:19 | DI.US.S_ITS ---
PROCEDURE: US PELVIC COMPLETE INDICATIONS: Abnormal CT TECHNIQUE: Real-time scanning was performed of the pelvic organs, with image documentation. Additional endovaginal scanning was necessary due to incomplete visualization of the adnexal and endometrial structures by transabdominal scanning. COMPARISON: [facility], CT, CT ABDOMEN PELVIS W CON, 09/19/2024, 12:09. [facility], US, US PELVIC COMPLETE, 08/23/2020, 8:02. FINDINGS: Uterus: Status post supracervical hysterectomy. Simple cysts are seen within the cervix remnant compatible with nabothian cysts. Ovaries: Ovaries are not well visualized due to bowel gas and patient body habitus. A left adnexal cystic structure measures 1.8 x 1.2 x 0.8 cm, but is not well characterized. No right adnexal mass. Other: No pathologic free abdominal or pelvic fluid. IMPRESSION: 1. Status post partial hysterectomy. Small nabothian cysts are seen within the cervical remnant accounting for the cystic structure seen on CT. 2. Ovaries are not well visualized. A 1.8 cm left adnexal cystic lesion likely corresponds to the cyst seen on CT, but is not well characterized on the current exam. Consider follow-up ultrasound in 6-12 weeks to evaluate for stability versus further characterization with contrast enhanced MRI of the pelvis. Approved by: Juan Pablo Mckeon M.D. on 10/06/2024 at 10:15
== END ==
LOC: US 09:18
PROVIDERS: PCP Registered Nurse Diabetes Educator; Referring Provider Registered Nurse Diabetes Educator; Visit Provider Registered Nurse Diabetes Educator
DX: N88.8 Other specified noninflammatory disorders of cervix uteri (principal); R93.5 Abnormal findings on diagnostic imaging of other abdominal regions, including retroperitoneum; Z90.710 Acquired absence of both cervix and uterus
CPT/HCPCS: 76830; 76856

== ENCOUNTER → 2024-10-25 15:55 | Outpatient (CLI) | payer OTHER, SELFPAY ==
[2022-12-17 12:38] VITALS: BMI 38.0
--- NOTE | 2024-10-25 15:56 | DI.MRI.S_ITS ---
PROCEDURE: MR ABDOMEN WO/W CON INDICATIONS: recurrent abd pain, hx of rectus desmoid tumor TECHNIQUE: Coronal HASTE, axial 2D FLASH in- and [id number]; axial breath-hold T2 FSE. Dynamic axial VIBE during the administration of contrast; post-contrast coronal VIBE or 2D FLASH with fat saturation from the hepatic dome to the iliac crests. Optional diffusion weighted imaging and ADC may be performed. COMPARISON: [facility], CT, CT ABDOMEN PELVIS W CON, 09/19/2024, 12:09. FINDINGS: Image quality: Diagnostic. Lung bases: Unremarkable. Liver: No solid mass. Gallbladder: No gallstones or wall thickening. Biliary ducts: No biliary dilation. Pancreas: No ductal dilation. Spleen: Size is within normal limits. Adrenal Glands: No adrenal nodules. Kidneys and Ureters: No hydronephrosis. No solid mass. No complex renal cystic lesion which requires follow up. Stomach and Bowel: Normal colonic caliber, without significant wall thickening. No focal lesion seen. Peritoneum: No abnormal intraperitoneal fluid. No free air. Ventral Wall: No hernia. Abdominal Nodes: No retroperitoneal or mesenteric adenopathy by size criteria. Vessels: Aorta and inferior vena cava are normal in size. Bones: No aggressive osseous abnormality. IMPRESSION: 1. No acute intra-abdominal abnormality seen. 2. The previously seen lymph node adjacent to the GE junction is not definitely seen at this time, possibly due to small size. No suspicious focal lesion otherwise. The area of previous desmoid tumor in the left lower quadrant is not included on this study. Dictated by: Irvin Casillas M.D. on 10/25/2024 at 21:23 Approved by: Irvin Casillas M.D. on 10/25/2024 at 21:33
== END ==
LOC: MRI 15:56
PROVIDERS: PCP Registered Nurse Diabetes Educator; Referring Provider Obstetrics & Gynecology; Visit Provider Emergency Medicine
DX: N83.202 Unspecified ovarian cyst, left side (principal); R10.32 Left lower quadrant pain
CPT/HCPCS: 74183; A9579

== ENCOUNTER → 2024-10-28 09:12 | Outpatient (CLI) | payer OTHER, SELFPAY ==
[2022-12-17 12:38] VITALS: BMI 38.0
--- NOTE | 2024-10-28 09:15 | DI.MRI.S_ITS ---
PROCEDURE: MR PELVIS WO/W CON INDICATIONS: RECURRENT ABD PAIN,HX OF RECTUS DESMOID TUMOR TECHNIQUE: Coronal HASTE, sagittal breath-hold T2 FSE; axial T1 FSE with and without fat saturation through the pelvis. Optional long- and short-axis uterine nonbreath-hold T2 FSE through the uterus. Sagittal or axial dynamic VIBE during administration of contrast. Post-contrast axial or coronal VIBE/2-D FLASH with fat saturation from the iliac crests to the symphysis. Optional diffusion weighted imaging and ADC may be performed. COMPARISON: [facility], CT, CT ABDOMEN PELVIS W CON, 08/23/2020, 7:41. [facility], CT, CT ABDOMEN PELVIS W CON, 09/19/2024, 12:09. Ultrasound dated 10/06/[address] examination dated 09/19/2024 FINDINGS: Image quality: Excellent. Uterus: Status post supracervical hysterectomy. Several cysts are seen in the residual cervix measuring up to 1.12 cm. There is preserved T2 hypointense stroma. No parametrial lesion seen. Adnexa: Small cysts are seen in the left ovary. In the expected location of the right ovary there is an ovoid soft tissue seen intensity structure with low T1 and T2 signal and probably mild delayed enhancement, also with restriction of diffusion. This measures 1.8 x 2.7 cm and is decreased in size compared to the size of the right ovary on CT dated 09/01. Urinary system: Bladder wall is normal in thickness. Distal ureters are non distended. Urethra appears normal in morphology. Nodes and vessels: No pelvic or inguinal adenopathy by size criteria. Iliac vessels are normal in size. Bowel and peritoneum: No pathologic free pelvic fluid. Inferior colon and small bowel loops are normal in caliber. Soft tissues: Stable linear parenchymal densities in the left lower anterior abdominal wall, no new mass or enhancing component seen. Bones: Marrow demonstrates normal overall signal. IMPRESSION: 1. Stable postoperative changes in the left lower anterior abdominal wall, no signs of recurrent tumor at this level. 2. Unremarkable appearance of the cervix post supracervical hysterectomy, with several small simple cysts. 3. Small simple cysts seen also in the left ovary. The right ovary appears to be replaced by a solid soft tissue structure, probably an involuted ovary, less likely a neoplasm such as fibroma. 4. No other mass or acute abnormality seen. Dictated by: Irvin Casillas M.D. on 10/29/2024 at 18:04 Approved by: Irvin Casillas M.D. on 10/29/2024 at 18:21
== END ==
PROVIDERS: PCP Registered Nurse Diabetes Educator; Referring Provider Obstetrics & Gynecology; Visit Provider Obstetrics & Gynecology
DX: N88.8 Other specified noninflammatory disorders of cervix uteri (principal); N83.202 Unspecified ovarian cyst, left side; Z90.711 Acquired absence of uterus with remaining cervical stump; R10.32 Left lower quadrant pain
CPT/HCPCS: 72197; A9579

== ENCOUNTER 2024-12-16 18:23 | Emergency (ER) | payer OTHER, SELFPAY ==
[2022-12-17 12:38] VITALS: BMI 38.0
[2024-12-16 18:34] VITALS: PULSE 71; O2SAT 99
[2024-12-16 18:35] VITALS: BP 117/73; PULSE 74; RESP 16; O2SAT 99
--- NOTE | 2024-12-16 18:36 | EKG_ITS ---
[address] [id number] [address] [place] [address] Test Date: 2024-12-16 Pat Name: Lidya Haji Department: Room: Gender: Female Accounts Payable Accountant: : 1975 Requested By: Order Number: [id number] Reading MD: Jagdeep Han MD Measurements Intervals [place] Rate: 66 P: [place]: 168 QRS: 140 QRSD: 86 T: 138 QT: 422 QTc: 442 Interpretive Statements Suspect arm lead reversal, interpretation assumes no reversal Normal sinus rhythm Lateral infarct , age undetermined Electronically Signed On 12-17-2024 8:28:26 PDT by Jagdeep Han MD
--- NOTE | 2024-12-16 18:37 | EKG_ITS ---
[address] [address] [address] [address] Test Date: 2024-12-16 Pat Name: Lidya Haji Department: Room: Gender: Female Family Therapist: : 1975 Requested By: Order Number: [id number] Reading MD: Jagdeep Han MD Measurements Intervals [place] Rate: 67 P: 46 AR: 166 QRS: 38 QRSD: 86 T: 39 QT: 426 QTc: 450 Interpretive Statements Normal sinus rhythm Electronically Signed On 12-17-2024 8:28:27 PDT by Jagdeep Han MD
[2024-12-16 18:38] VITALS: BP 117/73; PULSE 72; RESP 16; TEMP 36.6; O2SAT 99; BMI 36.5
--- NOTE | 2024-12-16 18:38 | DI.RAD.S_ITS ---
PROCEDURE: XR CHEST 1V INDICATIONS: Chest Pain TECHNIQUE: One view of the chest was acquired. COMPARISON: None. FINDINGS: Surgical changes and devices: None. Lungs and pleura: Lungs are clear. No pleural effusions or pneumothorax. Mediastinum: Mediastinal contours appear normal. Heart size is normal. Bones and chest wall: No suspicious bony lesions. Overlying soft tissues appear unremarkable. IMPRESSION: No acute cardiopulmonary abnormality is seen. Dictated by: Raimundo Kwok M.D. on 12/16/2024 at 19:53 Approved by: Raimundo Kwok M.D. on 12/16/2024 at 19:53
[2024-12-16 18:58] VITALS: BP 121/62; PULSE 65; RESP 16; O2SAT 99
[2024-12-16 19:00] VITALS: BP 123/64; PULSE 65; RESP 14; O2SAT 100
[2024-12-16 19:13] LABS: Add Manual Diff / Slide Review NO; Hematocrit 43.3 % (36-46); Hemoglobin 14.3 g/dL (12.0-16.0); Lymphocytes Absolute Auto 1500 /uL (1100-4500); Mean Corpuscular HGB Conc 33.1 % (30-36); Mean Corpuscular Hemoglobin 28.1 PG (26-34); Mean Corpuscular Volume 84.8 fL (80-100); Platelet Count 269 X10^3/uL (150-400)
[2024-12-16 19:16] LABS: INR 1.1 (0.9-1.3); Prothrombin Time 11.9 SECONDS (9.4-12.5)
[2024-12-16 19:18] LABS: PTT Partial Thromboplastin Tim 25 SECONDS (25.1-36.5)
[2024-12-16 19:19] LABS: Alanine Aminotransferase 35 IU/L (<35); Albumin 4.3 g/dL (3.5-5.0); Albumin Globulin Ratio 1.2 (1.0-2.8); Alkaline Phosphatase 76 U/L (38-126); Blood Urea Nitrogen 18 mg/dL (7-17); Calcium 9.1 mg/dL (8.4-10.2); Carbon Dioxide 25 mmol/L (22-32); Chloride 105 mmol/L (98-107); Creatine Kinase 84 U/L (30-135); Estimated Glomerular Filt Rate > 60 mL/min (>60); Globulin 3.5 g/dL (1.7-4.1); Glucose 107 mg/dL (70-99); HEMOLYSIS 33 (0-50); Magnesium 2.0 mg/dL (1.6-2.3); Potassium 3.3 mmol/L (3.4-5.1); Sodium 139 mmol/L (137-145); Total Protein 7.8 g/dL (6.3-8.2)
[2024-12-16] MEDS: ASPIRIN 81 MG CHEW TAB 324 MG PO (19:24)
[2024-12-16 19:30] VITALS: BP 125/66; PULSE 71; RESP 13; O2SAT 99
[2024-12-16 19:31] LABS: NT-proBNP (BNP-Adult 18+) 57 pg/mL (<125); Troponin I < 0.012 ng/mL (0.01-0.034)
[2024-12-16 20:33] LABS: Lipase 24613 U/L (23-300)
== END 2024-12-16 20:05 | disposition left against medical advice (07) ==
PROVIDERS: Emergency Provider Emergency Medicine; PCP Registered Nurse Diabetes Educator
DX: R07.9 Chest pain, unspecified (principal)
CPT/HCPCS: 36415; 71045; 80053; 82550; 83690; 83735; 83880; 84484; 85025; 85610; 85730; 93005; 93010; 99284

== ENCOUNTER 2025-01-14 14:18 | Emergency (ER) | payer OTHER, SELFPAY ==
[2022-12-17 12:38] VITALS: BMI 38.0
[2025-01-14] VITALS (11 sets, daily range): BP systolic 132–168; BP diastolic 67–88; PULSE 47–74; RESP 12–21; TEMP 36.3; O2SAT 95–99; BMI 40.3
--- NOTE | 2025-01-14 15:02 | DI.CT.S_ITS ---
PROCEDURE: CT KIDNEY URETER BLADDER (KUB) INDICATIONS: R flank pain; hx stones TECHNIQUE: Axial sections were acquired from the lung bases to the pubic symphysis. Coronal and sagittal reformats were performed. For radiation dose reduction, the following was used: automated exposure control, adjustment of mA and/or kV according to patient size. COMPARISON: [facility], CT, CT ABDOMEN PELVIS W CON, 09/19/2024, 12:09. [facility], MR, MR ABDOMEN WO/W CON, 10/25/2024, 16:21. [facility], MR, MR PELVIS WO/W CON, 10/28/2024, 9:19. FINDINGS: Image quality: Diagnostic. Lower Chest: A small hiatal hernia is incidentally noted. URINARY: Right Kidney: Nonobstructing right-sided kidney stones are seen, with the largest measuring 4-5 mm and 200 Hounsfield units. Right Ureter: No hydroureter. Left Kidney: No stones or hydronephrosis. Left Ureter: No hydroureter. Bladder: Normal wall thickness. No stones. ABDOMEN: Liver: No contour-deforming solid mass. Gallbladder: A layering gallstone is seen, as on series 2, image 51. No additional CT findings of cholecystitis are seen. Biliary ducts: No biliary dilation. Pancreas: Significant inflammatory change can be seen surrounding the pancreas, particular along the right aspect of the pancreas. No loculated fluid collections can be seen. No pancreatic ductal dilatation is seen. Spleen: Size is within normal limits. Adrenal Glands: No adrenal nodules. Stomach and Bowel: Normal colonic caliber, without significant wall thickening. Peritoneum: No abnormal intraperitoneal fluid. No free air. Ventral Wall: No hernia. Postoperative change of the left lower quadrant anterior abdominal wall can be seen. Abdominal Nodes: No enlarged retroperitoneal or mesenteric lymph nodes. Vessels: Aorta and inferior vena cava are normal in size. PELVIS: Pelvic Organs: No adnexal masses are seen on either side. Pelvic Nodes: Unremarkable. Miscellaneous: No inguinal hernias are seen. Bones: Unremarkable. IMPRESSION: Significant pancreatitis. Nonobstructing right-sided kidney stones are seen. No hydronephrosis. Additional findings: Small hiatal hernia Layering gallstone Left lower quadrant anterior abdominal wall postoperative change Dictated by: [place] Parra M.D. on 01/14/2025 at 14:20 Approved by: [place] Parra M.D. on 01/14/2025 at 14:23
[2025-01-14 15:48] LABS: Add Manual Diff / Slide Review NO; Hematocrit 46.5 % (36-46); Hemoglobin 15.4 g/dL (12.0-16.0); Lymphocytes Absolute Auto 600 /uL (1100-4500); Mean Corpuscular HGB Conc 33.0 % (30-36); Mean Corpuscular Hemoglobin 28.0 PG (26-34); Mean Corpuscular Volume 84.9 fL (80-100); Platelet Count 277 X10^3/uL (150-400)
[2025-01-14] MEDS: ONDANSETRON 4 MG/2 ML INJ IV ×2 (15:55→17:28)
[2025-01-14] MEDS: KETOROLAC 30 MG/ML VIAL 15 MG IV (15:55)
[2025-01-14] MEDS: SODIUM CHLORIDE 0.9% 1,000 ML 1000 ML IV (15:56)
[2025-01-14 15:58] LABS: Alanine Aminotransferase 311 IU/L (<35); Albumin 4.4 g/dL (3.5-5.0); Albumin Globulin Ratio 1.2 (1.0-2.8); Alkaline Phosphatase 109 U/L (38-126); Blood Urea Nitrogen 20 mg/dL (7-17); Calcium 9.0 mg/dL (8.4-10.2); Carbon Dioxide 28 mmol/L (22-32); Chloride 104 mmol/L (98-107); Estimated Glomerular Filt Rate > 60 mL/min (>60); Globulin 3.6 g/dL (1.7-4.1); Glucose 146 mg/dL (70-99); HEMOLYSIS 22 (0-50); Potassium 3.8 mmol/L (3.4-5.1); Sodium 138 mmol/L (137-145); Total Protein 8.0 g/dL (6.3-8.2)
--- NOTE | 2025-01-14 16:19 | ED_ITS ---
HPI - Abdominal Pain <Mare Bates PA-C - Last Filed: 01/14/25 20:10> General Chief Complaint: Urogenital-Female Stated Complaint: Poss kidney stone episode; vomiting Time Seen by Provider: 01/14/25 15:01 Source: patient and family Mode of arrival: Ambulatory History of Present Illness HPI narrative: Ms. Haji is a pleasant 49-year-old female with a past medical history of recurrent nephrolithiasis, hysterectomy who presents to the emergency department for abdominal pain nausea and vomiting that started this morning at 6:00 a.m. Patient states when she woke up she had severe epigastric abdominal pain that was radiating to her back in the location of ?her kidneys?. Symptoms felt very similar to when she had a kidney stone in the past that caused her to become septic. Reports having frequent episode of nonbloody vomiting and feeling hot and cold but without having a fever. No chest pain, shortness of breath, coughing, sore throat, dysuria, hematuria. Her only medication use is Wellbutrin and naltrexone for weight loss. She does not drink alcohol. She does not smoke. Related Data Home Medications ?Medication ?Instructions ?Recorded ?Confirmed alprazolam 1 mg tablet 0.5 mg PO Q12HR PRN anxiety 01/14/25 01/14/25 Previous Rx's ?Medication ?Instructions ?Recorded bupropion HCl 300 mg 24 hr tablet, 300 mg PO QAM #90 t abs 10/25/24 extended release naltrexone 50 mg tablet 25 mg (1/2 x 50 mg) PO DAILY #45 10/25/24 tabs sumatriptan succinate 50 mg tablet See Rx Instructions PO .COMPLEX 10/25/24 (Imitrex) #10 tabs Allergies Allergy/AdvReac Type Severity Reaction Status Date / Time No Known Allergies Allergy Uncoded 01/14/25 14:51 Review of Systems <Mare Bates PA-C - Last Filed: 01/14/25 20:10> Review of Systems ROS Unobtainable: All systems reviewed & are unremarkable except as noted in HPI and below Patient History <Mare Bates PA-C - Last Filed: 01/14/25 20:10> Medical History Colicky LLQ abdominal pain Ovarian cyst Dyslipidemia Recurrent nephrolithiasis Kidney stones (~2010) Obesity Surgical History Hx of abdominal surgery (09/10/20) Anesthesia History of tonsillectomy History of appendectomy History of section Family History Grandfather Hypertension Stroke Grandmother Cancer Father Hypertension Social History marital status: household members: spouse and children occupational status: employed Smoking Status: Never smoker alcohol intake: never substance use type: does not use Smoking Status: Never smoker Exam <Mare Bates PA-C - Last Filed: 01/14/25 20:10> Narrative Exam Narrative: GENERAL: 49 year old patient appears stated age. Obese patient, in no acute distress. HEAD: Atraumatic. Normocephalic. EYES: No scleral icterus. No injection or drainage. NECK: Trachea midline. Cervical ROM intact. CARDIOVASCULAR: Regular rate and rhythm. RESPIRATORY: ?Nonlabored respirations. ?Speaking in clear, full sentences. ?Clear to auscultation. Breath sounds equal bilaterally. No wheezes, rales, or rhonchi. ? GASTROINTESTINAL: Epigastric abdominal tenderness to both light and deep palpation. No rebound or guarding. Bowel sounds are present. No abdominal ecchymoses. EXTREMITIES: No edema or joint tenderness. BACK: No CVA tenderness bilaterally. NEURO: AOx3. ?Clear speech. ?Moves all 4 extremities appropriately. SKIN: No rash or erythema of visible areas Initial Vital Signs Initial Vital Signs: Vital Signs Temperature 97.3 F L 01/14/25 14:51 Pulse Rate 65 01/14/25 14:51 Respiratory Rate 14 01/14/25 14:51 Blood Pressure 136/76 01/14/25 14:51 Pulse Oximetry 99 01/14/25 14:51 Oxygen Delivery Method Room Air 01/14/25 14:51 <Kenney Starks MD - Last Filed: 01/15/25 06:40> Initial Vital Signs Initial Vital Signs: Vital Signs Temperature 97.3 F L 01/14/25 14:51 Pulse Rate 65 01/14/25 14:51 Respiratory Rate 14 01/14/25 14:51 Blood Pressure 136/76 01/14/25 14:51 Pulse Oximetry 99 01/14/25 14:51 Oxygen Delivery Method Room Air 01/14/25 14:51 Course <Mare Bates PA-C - Last Filed: 01/14/25 20:10> Orders Ordered: Discontinued Medications Diphenhydramine HCl (Diphenhydramine 50 Mg/Ml Vial) 25 mg IV NOW ONE Stop: 01/14/25 20:49 Last Admin: 01/14/25 20:55 Dose: 25 mg Documented By: ENRIQUE Droperidol (Droperidol 2.5 Mg/Ml Vial) 1.25 mg IV NOW ONE Stop: 01/14/25 20:49 Last Admin: 01/14/25 20:55 Dose: 1.25 mg Documented By: ENRIQUE Hydromorphone HCl (Hydromorphone Hcl 0.5 Mg/0.5 Ml Syringe) 0.5 mg IV NOW ONE Stop: 01/14/25 16:21 Last Admin: 01/14/25 17:28 Dose: 0.5 mg Documented By: AARON Hydromorphone HCl (Hydromorphone Hcl 0.5 Mg/0.5 Ml Syringe) 0.5 mg IV PRN PRN PRN Reason: Pain, Severe (7-10) Last Admin: 01/14/25 21:53 Dose: 0.5 mg Documented By: Admin: 01/14/25 18:22 Dose: 0.5 mg Documented By: AARON Sodium Chloride (Normal Saline 0.9%) 1,000 mls @ 1,000 mls/hr IV BOLUS ONE Stop: 01/14/25 16:01 Last Infusion: 01/14/25 17:25 Dose: Infused Documented By: Admin: 01/14/25 15:56 Dose: 1,000 mls/hr Documented By: MAGUE Sodium Chloride (Normal Saline 0.9%) 1,000 mls @ 1,000 mls/hr IV BOLUS ONE Stop: 01/14/25 17:33 Last Infusion: 01/14/25 21:51 Dose: Infused Documented By: Infusion: 01/14/25 20:18 Dose: 1,000 mls/hr Documented By: Admin: 01/14/25 17:21 Dose: 125 mls/hr Documented By: AARON Sodium Chloride (Normal Saline 0.9%) 1,000 mls @ 125 mls/hr IV CONT PERLA Last Infusion: 01/14/25 22:54 Dose: Infused Documented By: Admin: 01/14/25 20:22 Dose: 125 mls/hr Documented By: ENRIQUE Acetaminophen (Ofirmev) 1,000 mg in 100 mls @ 400 mls/hr IV NOW ONE Stop: 01/14/25 19:57 Last Infusion: 01/14/25 20:48 Dose: Infused Documented By: Admin: 01/14/25 20:16 Dose: 400 mls/hr Documented By: ENRIQUE Ketorolac Tromethamine (Ketorolac 30 Mg/Ml Vial) 15 mg IV NOW ONE Stop: 01/14/25 15:03 Last Admin: 01/14/25 15:55 Dose: 15 mg Documented By: MAGUE Metoclopramide HCl (Metoclopramide 10 Mg/2 Ml Inj) 10 mg IV NOW ONE Stop: 01/14/25 18:09 Last Admin: 01/14/25 18:16 Dose: 10 mg Documented By: AARON Ondansetron HCl (Ondansetron 4 Mg/2 Ml Inj) 4 mg IV NOW ONE Stop: 01/14/25 15:03 Last Admin: 01/14/25 15:55 Dose: 4 mg Documented By: MAGUE Ondansetron HCl (Ondansetron 4 Mg/2 Ml Inj) 4 mg IV NOW ONE Stop: 01/14/25 16:21 Last Admin: 01/14/25 17:28 Dose: 4 mg Documented By: AARON Pantoprazole Sodium (Pantoprazole 40 Mg Vial) 40 mg IV NOW ONE Stop: 01/14/25 20:10 Last Admin: 01/14/25 20:22 Dose: 40 mg Documented By: ENRIQUE Vital Signs Vital signs: Vital Signs - 8 hr 01/14/25 14:51 01/14/25 19:00 01/14/25 19:30 Temperature 97.3 F L Pulse Rate 65 67 55 L Respiratory Rate 14 15 21 Blood Pressure 136/76 Pulse Oximetry 99 99 97 Oxygen Delivery Method Room Air 01/14/25 20:00 01/14/25 20:11 01/14/25 20:11 Temperature Pulse Rate 54 L 47 L Respiratory Rate 12 12 Blood Pressure 153/78 H Pulse Oximetry 99 99 Oxygen Delivery Method Room Air <Kenney Starks MD - Last Filed: 01/15/25 06:40> Orders Ordered: Discontinued Medications Diphenhydramine HCl (Diphenhydramine 50 Mg/Ml Vial) 25 mg IV NOW ONE Stop: 01/14/25 20:49 Last Admin: 01/14/25 20:55 Dose: 25 mg Documented By: ENRIQUE Droperidol (Droperidol 2.5 Mg/Ml Vial) 1.25 mg IV NOW ONE Stop: 01/14/25 20:49 Last Admin: 01/14/25 20:55 Dose: 1.25 mg Documented By: ENRIQUE Hydromorphone HCl (Hydromorphone Hcl 0.5 Mg/0.5 Ml Syringe) 0.5 mg IV NOW ONE Stop: 01/14/25 16:21 Last Admin: 01/14/25 17:28 Dose: 0.5 mg Documented By: AARON Hydromorphone HCl (Hydromorphone Hcl 0.5 Mg/0.5 Ml Syringe) 0.5 mg IV PRN PRN PRN Reason: Pain, Severe (7-10) Last Admin: 01/14/25 21:53 Dose: 0.5 mg Documented By: Admin: 01/14/25 18:22 Dose: 0.5 mg Documented By: AARON Sodium Chloride (Normal Saline 0.9%) 1,000 mls @ 1,000 mls/hr IV BOLUS ONE Stop: 01/14/25 16:01 Last Infusion: 01/14/25 17:25 Dose: Infused Documented By: Admin: 01/14/25 15:56 Dose: 1,000 mls/hr Documented By: MAGUE Sodium Chloride (Normal Saline 0.9%) 1,000 mls @ 1,000 mls/hr IV BOLUS ONE Stop: 01/14/25 17:33 Last Infusion: 01/14/25 21:51 Dose: Infused Documented By: Infusion: 01/14/25 20:18 Dose: 1,000 mls/hr Documented By: Admin: 01/14/25 17:21 Dose: 125 mls/hr Documented By: AARON Sodium Chloride (Normal Saline 0.9%) 1,000 mls @ 125 mls/hr IV CONT PERLA Last Infusion: 01/14/25 22:54 Dose: Infused Documented By: Admin: 01/14/25 20:22 Dose: 125 mls/hr Documented By: ENRIQUE Acetaminophen (Ofirmev) 1,000 mg in 100 mls @ 400 mls/hr IV NOW ONE Stop: 01/14/25 19:57 Last Infusion: 01/14/25 20:48 Dose: Infused Documented By: Admin: 01/14/25 20:16 Dose: 400 mls/hr Documented By: ENRIQUE Ketorolac Tromethamine (Ketorolac 30 Mg/Ml Vial) 15 mg IV NOW ONE Stop: 01/14/25 15:03 Last Admin: 01/14/25 15:55 Dose: 15 mg Documented By: MAGUE Metoclopramide HCl (Metoclopramide 10 Mg/2 Ml Inj) 10 mg IV NOW ONE Stop: 01/14/25 18:09 Last Admin: 01/14/25 18:16 Dose: 10 mg Documented By: AARON Ondansetron HCl (Ondansetron 4 Mg/2 Ml Inj) 4 mg IV NOW ONE Stop: 01/14/25 15:03 Last Admin: 01/14/25 15:55 Dose: 4 mg Documented By: MAGUE Ondansetron HCl (Ondansetron 4 Mg/2 Ml Inj) 4 mg IV NOW ONE Stop: 01/14/25 16:21 Last Admin: 01/14/25 17:28 Dose: 4 mg Documented By: AARON Pantoprazole Sodium (Pantoprazole 40 Mg Vial) 40 mg IV NOW ONE Stop: 01/14/25 20:10 Last Admin: 01/14/25 20:22 Dose: 40 mg Documented By: ENRIQUE Vital Signs Vital signs: Vital Signs - 8 hr 01/14/25 14:51 01/14/25 19:00 01/14/25 19:30 Temperature 97.3 F L Pulse Rate 65 67 55 L Respiratory Rate 14 15 21 Blood Pressure 136/76 Pulse Oximetry 99 99 97 Oxygen Delivery Method Room Air 01/14/25 20:00 01/14/25 20:11 01/14/25 20:11 Temperature Pulse Rate 54 L 47 L Respiratory Rate 12 12 Blood Pressure 153/78 H Pulse Oximetry 99 99 Oxygen Delivery Method Room Air MDM - Abdominal Pain <Mare C Paulo, PA-C - Last Filed: 01/14/25 20:10> Medical Records Attestation: I reviewed the patient's medical records. Lab Data 01/14/25 15:43 01/14/25 15:43 Labs: Lab Results 01/14/25 01/14/25 01/14/25 Range/Units 15:43 16:50 16:55 WBC 16.6 H (4.5-11.0) X10^3/uL RBC 5.48 H (4.0-5.2) X10^6/uL Hgb 15.4 (12.0-16.0) g/dL Hct 46.5 H (36-46) % MCV 84.9 (80-100) fL MCH 28.0 (26-34) PG MCHC 33.0 (30-36) % RDW 13.4 (11.6-14.8) % Plt Count 277 (150-400) X10^3/uL Neut % (Auto) 93.4 H (50-75) % Lymph % (Auto) 3.9 L (25-40) % [place] % (Auto) 2.4 L (3-14) % Eos % (Auto) 0.0 L (2-4) % Baso % (Auto) 0.3 (0-2) % Neut # (Auto) 98532 H (5773-9732) /uL Lymph # (Auto) 600 L (6894-8651) /uL [place] # (Auto) 400 (0-900) /uL Eos # (Auto) 0 (0-450) /uL Baso # (Auto) 100 (0-100) /uL Sodium 138 (137-145) mmol/L Potassium 3.8 (3.4-5.1) mmol/L Chloride 104 (98-107) mmol/L Carbon Dioxide 28 (22-32) mmol/L BUN 20 H (7-17) mg/dL Creatinine 0.72 (0.52-1.04) mg/dL Estimated GFR > 60 (>60) mL/min BUN/Creatinine Ratio 27.8 H (6-22) Glucose 146 H (70-99) mg/dL Lactate 1.6 (0.7-2.1) mmol/L Calcium 9.0 (8.4-10.2) mg/dL Total Bilirubin 1.1 (0.2-1.3) mg/dL AST 414 H (14-36) IU/L ALT 311 H (<35) IU/L Alkaline Phosphatase 109 (38-126) U/L Total Protein 8.0 (6.3-8.2) g/dL Albumin 4.4 (3.5-5.0) g/dL Globulin 3.6 (1.7-4.1) g/dL Albumin/Globulin Ratio 1.2 (1.0-2.8) Lipase 90532 H (23-300) U/L Urine Color Yellow Urine Appearance Sl cloudy Urine pH 6.5 (4.5-8.0) Ur Specific [place] 1.020 (1.000-1.035) Urine Protein Trace H (Negative) Urine Glucose (UA) Negative (Negative) g/dL Urine Ketones Negative (NEGATIVE) Urine Occult Blood 1+ H (Negative) Urine Nitrate Negative (Negative) Urine Bilirubin 1+ H (NEGATIVE) Ur Bilirubin Confirm Positive H (Negative) Urine Urobilinogen 1.0 (0.2) E.U./dL Ur Leukocyte Esterase Negative (NEGATIVE) Urine RBC 0-1/hpf (0-5/HPF) Urine WBC None seen (0-5/HPF) Ur Squamous Epith Cells None seen (0-5/HPF) Urine Bacteria Few (2-10) H (None) Urine Yeast 0-1/hpf (None) Ur Culture Indicated? Cult not indicated Vol Urine Centrifuged Low vol <10ml (spun) A Imaging Data CT KUB: Radiologist's Impression: PROCEDURE: CT KIDNEY URETER BLADDER (KUB) INDICATIONS: R flank pain; hx stones TECHNIQUE: Axial sections were acquired from the lung bases to the pubic symphysis. Coronal and sagittal reformats were performed. For radiation dose reduction, the following was used: automated exposure control, adjustment of mA and/or kV according to patient size. COMPARISON: Located Within [facility], CT, CT ABDOMEN PELVIS W CON, 09/19/2024, 12:09. Located Within [facility], MR, MR ABDOMEN WO/W CON, 10/25/2024, 16:21. Located Within [facility], MR, MR PELVIS WO/W CON, 10/28/2024, 9:19. FINDINGS: Image quality: Diagnostic. Lower Chest: A small hiatal hernia is incidentally noted. URINARY: Right Kidney: Nonobstructing right-sided kidney stones are seen, with the largest measuring 4-5 mm and 200 Hounsfield units. Right Ureter: No hydroureter. Left Kidney: No stones or hydronephrosis. Left Ureter: No hydroureter. Bladder: Normal wall thickness. No stones. ABDOMEN: Liver: No contour-deforming solid mass. Gallbladder: A layering gallstone is seen, as on series 2, image 51. No additional CT findings of cholecystitis are seen. Biliary ducts: No biliary dilation. Pancreas: Significant inflammatory change can be seen surrounding the pancreas, particular along the right aspect of the pancreas. No loculated fluid collections can be seen. No pancreatic ductal dilatation is seen. Spleen: Size is within normal limits. Adrenal Glands: No adrenal nodules. Stomach and Bowel: Normal colonic caliber, without significant wall thickening. Peritoneum: No abnormal intraperitoneal fluid. No free air. Ventral Wall: No hernia. Postoperative change of the left lower quadrant anterior abdominal wall can be seen. Abdominal Nodes: No enlarged retroperitoneal or mesenteric lymph nodes. Vessels: Aorta and inferior vena cava are normal in size. PELVIS: Pelvic Organs: No adnexal masses are seen on either side. Pelvic Nodes: Unremarkable. Miscellaneous: No inguinal hernias are seen. Bones: Unremarkable. IMPRESSION: Significant pancreatitis. Nonobstructing right-sided kidney stones are seen. No hydronephrosis. Additional findings: Small hiatal hernia Layering gallstone Left lower quadrant anterior abdominal wall postoperative change Dictated by: Montana Parra M.D. on 01/14/2025 at 14:20 Approved by: Montana Parra M.D. on 01/14/2025 at 14:23 RUQ US: Radiologist's Impression: PROCEDURE: US ABDOMEN LIMITED INDICATIONS: pancreatitis; elevated LFTs; concern gallstone panc TECHNIQUE: Real-time focused scanning was performed of the abdomen, with image documentation. COMPARISON: Located Within [facility], CT, CT KIDNEY URETER BLADDER (KUB), 01/14/2025, 15:08. FINDINGS: The liver is prominent size and demonstrates normal overall echogenicity. Small layering gallstones are seen. The gallbladder wall is not thickened, measuring 3 mm or less. No specific pericholecystic fluid is seen. The sonographic Black sign is negative. There is no biliary dilatation, the common bile duct measures 2 mm. The pancreas is heterogeneous. The pancreatic duct is mildly dilated at 4 mm. IMPRESSION: Gallstones are seen. No biliary ductal dilatation is seen. Heterogeneous pancreas, with a mildly dilated pancreatic duct (4 mm). Dictated by: Montana Parra M.D. on 01/14/2025 at 16:33 Approved by: Montana Parra M.D. on 01/14/2025 at 16:34 ECG Data Interpretation: ECG reveals sinus bradycardia with a rate of 47 beats per minute, QTC 424 MDM Narrative Medical decision making narrative: 49-year-old female with a past medical history of recurrent nephrolithiasis, hysterectomy who presents to the emergency department for abdominal pain nausea and vomiting that started this morning at 6:00 a.m. Differential diagnosis includes but isn't limited to nephrolithiasis, ureterolithiasis, pyelonephritis, pancreatitis, cholecystitis, etc. On exam patient is in no acute distress, nontoxic appearing, she is visibly uncomfortable. Significant epigastric abdominal tenderness. Lab work and imaging was obtained prior to my initial evaluation, patient concerned for kidney stone as CT KUB was ordered revealing significant pancreatitis. There are nonobstructing right-sided kidney stones with no hydronephrosis. She also has layering gallstones. We will obtain right upper quadrant ultrasound for further evaluation of gallstones. Labs reveal elevated white blood cell count 16.6. Hemoglobin 15.4. Platelets 277. Sodium 138. Potassium 3.8. BUN 20 creatinine 0.72. Glucose 146. Patient does have significant elevations of her AST ALT at 4:14 a.m. and 311. Normal alkaline phosphatase. Normal total bilirubin 1.1. Patient's symptoms not improved at all with Toradol, fluids, Zofran. Dilaudid additional Zofran and fluids ordered. Lipase is extremely elevated at 21,531 consistent with acute pancreatitis. It was actually more elevated 12/16/2024, appears patient came to the ED at that date for chest pain but left without being seen. Ultrasound reveals gallstones with no biliary ductal dilatation, she does have a heterogeneous pancreas with a mildly dilated pancreatic duct. Consulted with our hospitalist, Dr. Wolf, who recommends transfer to another facility with GI/MRCP/ERCP capability. We will consult GI for pancreatitis concerned for biliary pancreatitis. Of note, patient does occasionally become bradycardic on the monitor, EKG was obtained revealing sinus bradycardia. She is not feeling short of breath, lightheaded or symptomatic with the bradycardia, she denies any known cardiovascular history. 1804: Spoke with [facility], Dr. Yeh. He recommends patient be transferred to [facility] for MRCP, further GI evaluation. He recommends either admission to the hospital if beds are available or ER to ER transfer. 1944: Patient's pain has only minimally improved. She is on naltrexone for weight loss which is likely reducing the effectiveness of the Dilaudid. We will switch to IV acetaminophen. I did allow her to have some ice chips at this time as she will likely not be able to have MRCP or any intervention until tomorrow. Strict NPO at midnight. <Kenney Starks MD - Last Filed: 01/15/25 06:40> Lab Data Attestation: I reviewed the patient's lab results. Lab results narrative: White blood cell count 52074, hemoglobin 15.4, platelets 277,000. Glucose 146. BUN 20 with creatinine 0.72 normal renal function. Serum CO2 28 normal, normal electrolytes. Total bilirubin 1.1 normal. Alkaline phosphatase 109 normal. AST 414 elevated, ALT 311 elevated. Lipase 14143 elevated. Lactate 1.6 normal. Urinalysis negative. Labs: Lab Results 01/14/25 01/14/25 01/14/25 Range/Units 15:43 16:50 16:55 WBC 16.6 H (4.5-11.0) X10^3/uL RBC 5.48 H (4.0-5.2) X10^6/uL Hgb 15.4 (12.0-16.0) g/dL Hct 46.5 H (36-46) % MCV 84.9 (80-100) fL MCH 28.0 (26-34) PG MCHC 33.0 (30-36) % RDW 13.4 (11.6-14.8) % Plt Count 277 (150-400) X10^3/uL Neut % (Auto) 93.4 H (50-75) % Lymph % (Auto) 3.9 L (25-40) % [place] % (Auto) 2.4 L (3-14) % Eos % (Auto) 0.0 L (2-4) % Baso % (Auto) 0.3 (0-2) % Neut # (Auto) 95774 H (8103-6449) /uL Lymph # (Auto) 600 L (2657-5872) /uL [place] # (Auto) 400 (0-900) /uL Eos # (Auto) 0 (0-450) /uL Baso # (Auto) 100 (0-100) /uL Sodium 138 (137-145) mmol/L Potassium 3.8 (3.4-5.1) mmol/L Chloride 104 (98-107) mmol/L Carbon Dioxide 28 (22-32) mmol/L BUN 20 H (7-17) mg/dL Creatinine 0.72 (0.52-1.04) mg/dL Estimated GFR > 60 (>60) mL/min BUN/Creatinine Ratio 27.8 H (6-22) Glucose 146 H (70-99) mg/dL Lactate 1.6 (0.7-2.1) mmol/L Calcium 9.0 (8.4-10.2) mg/dL Total Bilirubin 1.1 (0.2-1.3) mg/dL AST 414 H (14-36) IU/L ALT 311 H (<35) IU/L Alkaline Phosphatase 109 (38-126) U/L Total Protein 8.0 (6.3-8.2) g/dL Albumin 4.4 (3.5-5.0) g/dL Globulin 3.6 (1.7-4.1) g/dL Albumin/Globulin Ratio 1.2 (1.0-2.8) Lipase 35578 H (23-300) U/L Urine Color Yellow Urine Appearance Sl cloudy Urine pH 6.5 (4.5-8.0) Ur Specific [place] 1.020 (1.000-1.035) Urine Protein Trace H (Negative) Urine Glucose (UA) Negative (Negative) g/dL Urine Ketones Negative (NEGATIVE) Urine Occult Blood 1+ H (Negative) Urine Nitrate Negative (Negative) Urine Bilirubin 1+ H (NEGATIVE) Ur Bilirubin Confirm Positive H (Negative) Urine Urobilinogen 1.0 (0.2) E.U./dL Ur Leukocyte Esterase Negative (NEGATIVE) Urine RBC 0-1/hpf (0-5/HPF) Urine WBC None seen (0-5/HPF) Ur Squamous Epith Cells None seen (0-5/HPF) Urine Bacteria Few (2-10) H (None) Urine Yeast 0-1/hpf (None) Ur Culture Indicated? Cult not indicated Vol Urine Centrifuged Low vol <10ml (spun) A MDM Narrative Medical decision making narrative: 49-year-old female with a past medical history of recurrent nephrolithiasis, hysterectomy who presents to the emergency department for abdominal pain nausea and vomiting that started this morning at 6:00 a.m. Differential diagnosis includes but isn't limited to nephrolithiasis, ureterolithiasis, pyelonephritis, pancreatitis, cholecystitis, etc. On exam patient is in no acute distress, nontoxic appearing, she is visibly uncomfortable. Significant epigastric abdominal tenderness. Lab work and imaging was obtained prior to my initial evaluation, patient concerned for kidney stone as CT KUB was ordered revealing significant pancreatitis. There are nonobstructing right-sided kidney stones with no hydronephrosis. She also has layering gallstones. We will obtain right upper quadrant ultrasound for further evaluation of gallstones. Labs reveal elevated white blood cell count 16.6. Hemoglobin 15.4. Platelets 277. Sodium 138. Potassium 3.8. BUN 20 creatinine 0.72. Glucose 146. Patient does have significant elevations of her AST ALT at 4:14 a.m. and 311. Normal alkaline phosphatase. Normal total bilirubin 1.1. Patient's symptoms not improved at all with Toradol, fluids, Zofran. Dilaudid additional Zofran and fluids ordered. Lipase is extremely elevated at 21,531 consistent with acute pancreatitis. It was actually more elevated 12/16/2024, appears patient came to the ED at that date for chest pain but left without being seen. Ultrasound reveals gallstones with no biliary ductal dilatation, she does have a heterogeneous pancreas with a mildly dilated pancreatic duct. Consulted with our hospitalist, Dr. Wolf, who recommends transfer to another facility with GI/MRCP/ERCP capability. We will consult GI for pancreatitis concerned for biliary pancreatitis. Of note, patient does occasionally become bradycardic on the monitor, EKG was obtained revealing sinus bradycardia. She is not feeling short of breath, lightheaded or symptomatic with the bradycardia, she denies any known cardiovascular history. 1804: Spoke with [facility], Dr. Yeh. He recommends patient be transferred to [facility] for MRCP, further GI evaluation. He recommends either admission to the hospital if beds are available or ER to ER transfer. 1944: Patient's pain has only minimally improved. She is on naltrexone for weight loss which is likely reducing the effectiveness of the Dilaudid. We will switch to IV acetaminophen. I did allow her to have some ice chips at this time as she will likely not be able to have MRCP or any intervention until tomorrow. Strict NPO at midnight. 01/14/252014, Raudel. Sign-out from [facility] Bates. Possible transfer to GI/ERCP capable facility. 49-year-old female with history of nephrolithiasis complained of epigastric pain, no alcohol use, afebrile, sirs screen negative, epigastric area discomfort on exam, screening labs showed white blood cell count 03554 mildly elevated, mild transaminitis, lipase 21,[address] abdomen and pelvis showed pancreatitis changes. Ultrasound right upper quadrant showed presence of gallstones, no biliary ductal dilatation, heterogeneous pancreas with a mildly dilated pancreatic duct of 4 mm. Attempt was to consider admission here, hospitalist here felt the patient should be managed by GI/ERCP capable facility. Case was discussed with GI at [facility] who agreed with transfer but no beds there, currently wait listed. Consider MRCP if still here tomorrow. Expand calls to other facilities for possible GI/ERCP capable facility transfer. Assumed care. Lab data: White blood cell count 19714, hemoglobin 15.4, platelets 206423. Glucose 146. BUN 20 with creatinine 0.72 normal renal function. Serum CO2 28 normal, normal electrolytes. Total bilirubin 1.1 normal. Alkaline phosphatase 109 normal. AST 414 elevated, ALT 311 elevated. Lipase 15362 elevated. Lactate 1.6 normal. Urinalysis negative. Ultrasound right upper quadrant. Impressions: ?Gallstones are seen. No biliary ductal dilatation is seen. Heterogeneous pancreas, with a mildly dilated pancreatic duct 4 mm. ? See radiology report. CT abdomen and pelvis noncontrast. Impression: Significant pancreatitis. Nonobstructing right-sided kidney stones are seen. No hydronephrosis. Additional findings of small hiatal hernia, layering gallstone, left lower quadrant anterior abdominal wall postoperative change. ? See radiology report. [id number], case discussed with hospitalist [place] [facility] who accepts patient for transfer. Discharge Plan Departure Patient Disposition: [facility] Clinical Impression: Transaminitis Pancreatitis Qualifiers: Chronicity: acute Pancreatitis type: unspecified pancreatitis type Acute pancreatitis complication: no infection or necrosis Qualified Code(s): K85.90 - Acute pancreatitis without necrosis or infection, unspecified Prescriptions: No Action sumatriptan succinate [Imitrex] 50 mg tablet See Rx Instructions PO .COMPLEX Qty: 10 3RF Rx Instructions: take 1 tab at onset of headache; if no relief may repeat 1 tab after at least 2 hrs; max = 4 tabs/24 hr PO bupropion HCl 300 mg tablet extended release 24 hr 300 mg PO QAM Qty: 90 1RF naltrexone 50 mg tablet 25 mg PO DAILY Qty: 45 1RF alprazolam 1 mg tablet 0.5 mg PO Q12HR PRN (Reason: anxiety) Referrals: Dano Amaral ARNP [Primary Care Provider, Medical]
--- NOTE | 2025-01-14 16:32 | DI.US.S_ITS ---
PROCEDURE: US ABDOMEN LIMITED INDICATIONS: pancreatitis; elevated LFTs; concern gallstone panc TECHNIQUE: Real-time focused scanning was performed of the abdomen, with image documentation. COMPARISON: [facility], CT, CT KIDNEY URETER BLADDER (KUB), 01/14/2025, 15:08. FINDINGS: The liver is prominent size and demonstrates normal overall echogenicity. Small layering gallstones are seen. The gallbladder wall is not thickened, measuring 3 mm or less. No specific pericholecystic fluid is seen. The sonographic Black sign is negative. There is no biliary dilatation, the common bile duct measures 2 mm. The pancreas is heterogeneous. The pancreatic duct is mildly dilated at 4 mm. IMPRESSION: Gallstones are seen. No biliary ductal dilatation is seen. Heterogeneous pancreas, with a mildly dilated pancreatic duct (4 mm). Dictated by: Montana Parra M.D. on 01/14/2025 at 16:33 Approved by: Montana Parra M.D. on 01/14/2025 at 16:34
[2025-01-14 16:47] LABS: Lipase 21531 U/L (23-300)
[2025-01-14 17:07] LABS: Bilirubin Urine UA 1+ (NEGATIVE); Color Urine UA YELLOW; Glucose Urine UA NEGATIVE (Negative); Ketones Urine UA NEGATIVE (NEGATIVE); Leukocyte Esterase Urine UA NEGATIVE (NEGATIVE); Nitrite Urine UA NEGATIVE (Negative); Occult Blood Urine UA 1+ (Negative); Protein Urine UA TRACE (Negative); Specific Gravity Urine UA 1.020 (1.000-1.035); Urobilinogen Urine UA 1.0 E.U./dL (0.2)
[2025-01-14 17:15] LABS: Appearance Urine UA SL CLOUDY; pH Urine UA 6.5 (4.5-8.0)
[2025-01-14 17:16] LABS: Lactate (Lactic Acid) 1.6 mmol/L (0.7-2.1)
[2025-01-14] MEDS: SODIUM CHLORIDE 0.9% 1,000 ML 125 ML IV ×2 (17:21→20:22)
[2025-01-14 17:42] LABS: Culture Indicated Urine Cult Not Indicated; Ictotest Urine Positive (Negative)
--- NOTE | 2025-01-14 17:55 | EKG_ITS ---
[address] [address] Test Date: 2025-01-14 Pat Name: Lidya Haji Department: Room: Gender: Female [employer]: jaime : 1975 Requested By: Order Number: [id number] Reading MD: Buck Orozco Measurements Intervals Ruth Rate: 47 P: 8 NH: 114 QRS: 57 QRSD: 80 T: 56 QT: 480 QTc: 424 Interpretive Statements Sinus bradycardia Electronically Signed On 01-20-2025 7:27:42 PDT by Buck Orozco
[2025-01-14] MEDS: METOCLOPRAMIDE 10 MG/2 ML INJ IV (18:16)
[2025-01-14] MEDS: ACETAMINOPHEN IV 1,000 MG/100 ML VIAL 400 MG IV (20:16)
[2025-01-14] MEDS: PANTOPRAZOLE 40 MG VIAL IV (20:22)
[2025-01-14] MEDS: diphenhydrAMINE 50 MG/ML VIAL 25 MG IV (20:55)
[2025-01-14] MEDS: droPERidol 2.5 MG/ML VIAL 1.25 MG IV (20:55)
--- NOTE | 2025-01-14 22:55 | PC.NURSE ---
[facility] here to transport patient to [facility]. An attempt was made by this RN to call nurse report at [phone] w/o success. Will attempt calling again.
--- NOTE | 2025-01-14 23:27 | PC.NURSE ---
Report called to ALLEN Currie @ [facility] [phone].
== END 2025-01-14 23:00 | disposition short-term general hospital (02) ==
PROVIDERS: Physician Assistant; Emergency Provider Emergency Medicine; PCP Registered Nurse Diabetes Educator
DX: K85.90 Acute pancreatitis without necrosis or infection, unspecified (principal); R74.01 Elevation of levels of liver transaminase levels; R11.2 Nausea with vomiting, unspecified
CPT/HCPCS: 36415; 74176; 76705; 80053; 81001; 83605; 83690; 85025; 93005; 96361; 96365; 96375; 96376; 99284; J0131; J1171; J1200; J1790; J1885; J2405; J2470; J2765